=== PATIENT | female | born 1945 | race Caucasian/White ===

== ENCOUNTER 2020-01-15 14:18 | Emergency (ER) | payer MEDICARE, SELFPAY ==
--- NOTE | 2020-01-15 14:30 | ED.URI ---
HPI - URI/Sore Throat General Chief Complaint: Upper Respiratory Infection Stated Complaint: COUGH/SORE THROAT Time Seen by Provider: 01/15/20 14:31 Source: patient and RN notes reviewed History of Present Illness HPI Narrative: Patient is a 74-year-old female presents the urgent care with complaints of a cough and sore throat since last . Patient states that she feels her cough is keeping her up at night and getting worse. Patient denies any production, shortness of breath. States that she does feel like she may be wheezing when she lays down at night. No other acute complaints. Patient has been using Coricidin and Tylenol. No acute distress noted. Patient read the plan of care. Related Data Home Medications Medication Instructions Recorded Confirmed anastrozole 1 mg tablet 1 mg PO DAILY 10/30/19 01/15/20 aspirin 81 mg tablet,delayed 81 mg PO DAILY 10/30/19 01/15/20 release calcium carbonate 600 mg calcium 600 mg PO DAILY 10/30/19 01/15/20 (1,500 mg) tablet cholecalciferol (vitamin D3) 125 5,000 unit PO DAILY 10/30/19 01/15/20 mcg (5,000 unit) capsule magnesium gluconate 27 mg 27 mg PO BID 10/30/19 01/15/20 magnesium (500 mg) tablet Allergies Allergy/AdvReac Type Severity Reaction Status Date / Time No Known Allergies Allergy Verified 01/15/20 14:40 Review of Systems Review of Systems: Narrative: CONSTITUTIONAL: Denies fever, chills, or sweats. EYES: Denies visual changes, redness, or discharge. ENT: Reports of sinus congestion, rhinorrhea, sore throat CARDIOVASCULAR: Denies chest pain, palpitations, or edema. RESPIRATORY: Reports of nonproductive cough with intermittent wheezing at night GASTROINTESTINAL: Denies abdominal pain, nausea, vomiting, or diarrhea. GENITOURINARY: Denies dysuria or hematuria. SKIN: Denies rash or itching. MUSCULOSKELETAL: Denies back pain, joint pain, or myalgia. NEUROLOGIC: Denies headache, numbness, or weakness. All other systems reviewed are negative, except as documented in HPI. [facility] Past Medical History Medical History (Updated 01/15/20 @ 15:06 by MARAH Dickerson) Breast cancer (~2014) Diabetes HLD (hyperlipidemia) Hypertension Social History Social History Smoking status: Never smoker Second hand tobacco smoke exposure: No Alcohol intake: never Substance use: never Substance use type: does not use Comments At the time of my signature, I reviewed and agree with the nursing past medical, surgical, social, and family history. There is no relevant family history pertinent to the patient complaint. Exam Narrative: Exam Narrative: GENERAL: This is a well-nourished, well-developed patient, in no apparent distress. HEAD: normocephalic, atraumatic. EYES: PERRL. Sclera clear/white. Vision is grossly intact. EARS: External ears normal, auditory canals clear and without drainage, TMs normal without perforation. Hearing grossly intact. NOSE: External nose normal with no obvious nasal discharge, bilateral erythemic nares with clear rhinorrhea. THROAT: Mucous membranes moist, mild erythema to the posterior oropharynx with mild postnasal drainage NECK: Neck supple, non-tender without lymphadenopathy CARDIOVASCULAR: Regular rate and rhythm without murmurs, gallops, or rubs. RESPIRATORY: Clear to auscultation. Breath sounds equal bilaterally. No wheezes, rales, or rhonchi. SKIN: warm, intact with no suspicious lesions or rash, good texture and turgor. NEURO: awake, alert, and oriented to person, place and time. There were no obvious focal neurologic abnormalities. EXTREMITIES: No clubbing, cyanosis, or edema. Course Vital Signs Vital signs: Vital Signs Temperature 100.3 F H 01/15/20 14:34 Pulse Rate 73 01/15/20 14:34 Respiratory Rate 20 01/15/20 14:34 Blood Pressure 121/54 L 01/15/20 14:34 Pulse Oximetry 99 01/15/20 14:34 Temperature 100.3 F H 01/15/20 14:34 Pulse
[2020-01-15 14:34] VITALS: BP 121/54; PULSE 73; RESP 20; TEMP 37.9; O2SAT 99
== END 2020-01-15 15:13 | disposition home or self-care (01) ==
PROVIDERS: Emergency Provider Nurse Practitioner Family; PCP Family Medicine
DX: J10.1 Influenza due to other identified influenza virus with other respiratory manifestations (principal); Z85.3 Personal history of malignant neoplasm of breast; E11.9 Type 2 diabetes mellitus without complications; E78.5 Hyperlipidemia, unspecified; I10 Essential (primary) hypertension
CPT/HCPCS: 87081; 87804; 87880; 99213; G0463

== ENCOUNTER 2020-12-04 13:54 | Outpatient (CLI) | payer MEDICARE, SELFPAY ==
--- NOTE | ~2020-12-04 | MM_ITS ---
EXAMINATION: MM screening reva RT w keri HISTORY: Screening right mammogram, history of left mastectomy TECHNIQUE: Craniocaudal and mediolateral oblique 3-D tomosynthesis images were obtained and synthetic 2-D images were generated. CAD analysis was submitted and interpreted. COMPARISON: 02/15/2019, 01/27/2018, 01/18/2017 BREAST PARENCHYMAL COMPOSITION: The breasts are almost entirely fatty. FINDINGS: Scattered benign-appearing calcifications are present. There is no evidence of suspicious m ass, calcification, or architectural distortion to suggest malignancy in either breast. There has bee n no suspicious interval change. IMPRESSION: 1. No mammographic evidence of malignancy. 2. Recommend routine screening mammography in one year. BI-RADS Category 2: Benign finding(s). Reviewed, dictated and finalized at location A. D RUNNER
== END 2020-12-04 13:55 | disposition home or self-care (01) ==
PROVIDERS: PCP Family Medicine; Visit Provider Physician Assistant
DX: Z12.31 Encounter for screening mammogram for malignant neoplasm of breast (principal)
CPT/HCPCS: 77063; 77067

== ENCOUNTER 2021-01-28 11:18 | Outpatient (CLI) | payer MEDICARE, SELFPAY | END 2021-01-28 11:19 | disposition home or self-care (01) | LOC: ANHCOVIDVC 11:18 | PROVIDERS: PCP Family Medicine; Visit Provider Family Medicine | DX: Z23 Encounter for immunization (principal) | CPT/HCPCS: 0001A; 91300 ==

== ENCOUNTER 2021-02-18 11:12 | Outpatient (CLI) | payer MEDICARE, SELFPAY | END 2021-02-18 11:13 | disposition home or self-care (01) | LOC: ANHCOVIDVC 11:12 | PROVIDERS: PCP Family Medicine | DX: Z23 Encounter for immunization (principal) | CPT/HCPCS: 0002A; 91300 ==

== ENCOUNTER 2022-01-14 09:45 | Outpatient (CLI) | payer MEDICARE, SELFPAY ==
--- NOTE | ~2022-01-14 | MM_ITS ---
CORRECTED REPORT MM screening reva RT w keri only. 01/14/2022 sef EXAMINATION: MM screening reva RT w keri HISTORY: Screening TECHNIQUE: Craniocaudal and mediolateral oblique 3-D tomosynthesis images were obtained and synthetic 2-D images were generated. CAD analysis was submitted and interpreted. COMPARISON: Comparison to multiple prior studies sequentially, with oldest reviewed study dated 12/19/2015. BREAST PARENCHYMAL COMPOSITION: There are scattered areas of fibroglandular density. FINDINGS: There is a developing cluster of indeterminate calcifications in the central aspect of the right breast, slightly lateral. No suspicious masses or architectural distortion. IMPRESSION: 1. Developing cluster of indeterminate right breast calcifications. 2. Magnification views are recommended. BI-RADS Category 0: Incomplete: Needs additional imaging evaluation. Reviewed, dictated and finalized at location A. MBLY LOADER MTDD
--- NOTE | 2022-01-14 10:27 | ECG_ITS ---
Measurements Intervals [place] Rate: 62 P: 41 [place]: 146 QRS: -9 QRSD: 89 T: 43 QT: 374 QTc: 382 Interpretive Statements SINUS RHYTHM CONSIDER INFERIOR INFARCT, AGE INDETERMINATE BORDERLINE ST-T WAVE ABNORMALITY- ANTEROLAT/HIGH LAT LEADS BASELINE ARTIFACT- I, II, III, AVF ABNORMAL ECG Electronically Signed On 01-14-2022 10:47:21 ALLERGIST IMMUNOLOGIST by Santiago Patel D.O.
== END 2022-01-14 09:46 | disposition home or self-care (01) ==
PROVIDERS: PCP Internal Medicine Medical Oncology; Visit Provider Family Medicine
DX: Z12.31 Encounter for screening mammogram for malignant neoplasm of breast (principal); E78.5 Hyperlipidemia, unspecified; I10 Essential (primary) hypertension; E11.9 Type 2 diabetes mellitus without complications; R94.31 Abnormal electrocardiogram [ECG] [EKG]; R92.8 Other abnormal and inconclusive findings on diagnostic imaging of breast
CPT/HCPCS: 77063; 77067; 93005

== ENCOUNTER 2022-02-02 10:38 | Outpatient (CLI) | payer MEDICARE, SELFPAY ==
--- NOTE | ~2022-02-02 | MM_ITS ---
EXAMINATION: MM diagnostic mammo unilat RT HISTORY: Follow-up calcifications TECHNIQUE: Additional 3-D tomosynthesis images of the right breast were performed and synthetic 2-D i mages were generated. CAD analysis was submitted and interpreted. COMPARISON: Comparison to multiple prior studies sequentially, with oldest reviewed study dated 11/2017. BREAST PARENCHYMAL COMPOSITION: Breast composed of scattered areas of fibroglandular density. FINDINGS: The right breast is stable. Clustered calcifications in the upper outer quadrant of the rig ht breast are stable without significant interval change. No new suspicious calcifications, director of enterprise architecture ural distortion or mass identified. IMPRESSION: 1. Stable benign-appearing right breast calcifications. No evidence for malignancy. 2. Routine yearly screening mammogram and regular clinical breast examination are recommended. BI-RADS Category 2: Benign finding(s). Reviewed, dictated and finalized at location A. DROGENATION SUPERVISOR IMPRESSION: 1. Stable benign-appearing right breast calcifications. No evidence for maligna ncy. 2. Routine yearly screening mammogram and regular clinical breast examination a re recommended. BI-RADS Category 2: Benign finding(s).
== END 2022-02-02 10:39 | disposition home or self-care (01) ==
LOC: ANHIMG 10:38
PROVIDERS: PCP Internal Medicine Medical Oncology; Visit Provider Family Medicine
DX: R92.8 Other abnormal and inconclusive findings on diagnostic imaging of breast (principal)
CPT/HCPCS: 77065

== ENCOUNTER 2022-02-09 13:44 | Outpatient (CLI) | payer MEDICARE, SELFPAY ==
--- NOTE | ~2022-02-09 | DEXA_ITS ---
Bone Density Report Name: MONSTER FAGAN Age: 77 Sex: Female Ethnicity: White Date of : 1945 Indication: osteopenia; prior fracture; cancer; postmenopausal Referring Provider: PANCHO GOULD Study: Bone densitometry was performed. Exam Date: February 09, 2022 Accession number: [id number] Bone Density: Region BMD T-score Z-score Classification AP Spine (L1-L4) 1.067 0.2 2.6 Normal Femoral Neck (Right) 0.663 -1.7 0.4 Osteopenia Total Hip (Right) 0.838 -0.9 0.9 Normal World Health Organization criteria for BMD impression classify patients as: Normal (T-score at or above -1.0), Osteopenia (T-score between -1.0 and -2.5), or Osteoporosis (T-score at or below -2.5). 10-year Fracture Risk: FRAX not reported because: Prior hip or vertebral fracture Previous Exams: Region Exam Age BMD T-score BMD Change BMD Change Date g/cm2 vs Baseline vs Previous AP Spine(L1-L4) 02/09/2022 77 1.067 0.2 0.009(0.8%) 0.009(0.8%) 07/04/2019 74 1.058 0.1 Total Hip(Right) 02/09/2022 77 0.838 -0.9 0.049(6.2%)* 0.049(6.2%)* 07/04/2019 74 0.789 -1.3 *Denotes significance at 95% confidence level, LSC for AP Spine = 0.022 g/cm2, LSC for Total Hip = 0.027 g/cm2 Clinical Information Provided by Patient: Have had a previous hip or vertebral fracture Has had a low trauma fracture Has used the following medications: HRT (i.e. estrogen/hormone therapy), Vitamin D, Calcium Has the following medical conditions: Cancer Patient maximum height was 62 Menopause Age: 55 Does not regularly consume dairy products Drinks caffeinated beverages Onset of menses at age 17 Number of children 1 Impression: The patient has low bone mass, based on the Right Femoral Neck T-score. The patient has risk factors, including: previous fracture. No significant bone loss was observed. Discussion: INCREASED RISK OF FRACTURE DUE TO HISTORY OF FRACTURE. The patient's previous fracture puts the patient at high risk of a future fracture. In untreated patients, the risk of osteoporotic fracture increases approximately two-fold for each 1.0 SD decrease in T-score. Low bone density is not the only risk factor for fracture; also consider factors such as patient's age, frailty or poor health, risk of falling, risk of injury, previous osteoporotic fracture, family history of osteoporosis, cigarette smoking, low body weight, etc. Not everyone with a low trauma fracture has osteoporosis; osteomalacia and other metabolic bone disorders should also be considered. Pat
== END 2022-02-09 13:45 | disposition home or self-care (01) ==
LOC: ANHIMG 13:45
PROVIDERS: PCP Internal Medicine Medical Oncology; Visit Provider Family Medicine
DX: Z78.0 Asymptomatic menopausal state (principal); M85.851 Other specified disorders of bone density and structure, right thigh
CPT/HCPCS: 77080

== ENCOUNTER 2023-08-23 10:10 | Outpatient (CLI) | payer MEDICARE, SELFPAY ==
--- NOTE | ~2023-08-23 | MM_ITS ---
EXAMINATION: MM screening reva RT w keri HISTORY: Screening mammogram TECHNIQUE: Craniocaudal and mediolateral oblique 3-D tomosynthesis images were obtained and synthetic 2-D images were generated. CAD analysis was submitted and interpreted. COMPARISON: 02/02/2022 diagnostic right mammogram , 12/04/2020, 02/15/2019 right screening mammogram examinations BREAST PARENCHYMAL COMPOSITION: There are scattered areas of fibroglandular density. FINDINGS: Scattered benign calcifications. There is no evidence of suspicious mass, calcification, or architectural distortion to suggest malignancy in either breast. There has been no suspicious interv al change. IMPRESSION: 1. No mammographic evidence of malignancy. 2. Recommend routine screening mammography in one year. BI-RADS Category 2: Benign finding(s). Reviewed, dictated and finalized at location A.
== END 2023-08-23 10:11 | disposition home or self-care (01) ==
LOC: ANHIMG 10:14
PROVIDERS: PCP Internal Medicine Medical Oncology; Visit Provider Family Medicine
DX: Z12.31 Encounter for screening mammogram for malignant neoplasm of breast (principal); Z90.12 Acquired absence of left breast and nipple
CPT/HCPCS: 77063; 77067

== ENCOUNTER 2024-02-14 13:53 | Outpatient (CLI) | payer MEDICARE, SELFPAY ==
--- NOTE | ~2024-02-14 | DEXA_ITS ---
Bone Density Report Name: MONSTER FAGAN Age: 79 Sex: Female Ethnicity: White Date of : 1945 Indication: postmenopausal; screening for osteoporosis; height loss; history of glucocorticoids; cancer; Referring Provider: UNKNOWN, UNKNOWN Study: Bone densitometry was performed. Exam Date: February 14, 2024 Accession number: [id number] Bone Density: Region BMD T-score Z-score Classification AP Spine(L1-L4) 1.032 -0.1 2.4 Normal Femoral Neck (Right) 0.573 -2.5 -0.3 Osteoporosis Total Hip (Right) 0.791 -1.2 0.7 Osteopenia World Health Organization criteria for BMD impression classify patients as: Normal (T-score at or above -1.0), Osteopenia (T-score between -1.0 and -2.5), or Osteoporosis (T-score at or below -2.5). 10-year Fracture Risk: FRAX not reported because: Some T-score for Spine Total or Hip Total or Femoral Neck at or below -2.5 Clinical Information Provided by Patient: Has taken Glucocorticoids Has used the following medications: Vitamin D, Calcium Has the following medical conditions: Cancer Patient maximum height was 62 Menopause Age: 55 No regular weight bearing exercise Does not regularly consume dairy products Drinks caffeinated beverages Onset of menses at age 17 Number of children 1 Impression: The patient has osteoporosis, based on the Right Femoral Neck T-score. The patient has risk factors, including: history of glucocorticoid therapy. Discussion: INCREASED RISK OF FRACTURE. BONE DENSITY IS UNDESIRABLY LOW AT ONE OR MORE SKELETAL SITES, CONSISTENT WITH POSTMENOPAUSAL OSTEOPOROSIS. This patient's lowest T-score meets the World Health Organization's (WHO) criteria for osteoporosis at one or more sites (T-score -2.5 or below). In untreated patients, the risk of osteoporotic fracture increases approximately two-fold for each 1.0 SD decrease in T-score. Low bone density is not the only risk factor for fracture; also consider factors such as patient's age, frailty or poor health, risk of falling, risk of injury, previous osteoporotic fracture, family history of osteoporosis, cigarette smoking, low body weight, etc. Not everyone with low bone mineral density has osteoporosis; osteomalacia and other metabolic bone disorders should also be considered. Patients who have osteoporosis should be evaluated for specific diseases and conditions (secondary causes) that may cause or contribute to bone loss. The [place] Association of Clinical Endocrinologists (AACE) and National Osteoporosis Foundation (NOF) recommend pharmacologic intervention for all postmenopausal women whose T-score is in this range. The patient should follow a healthful lifestyle (good nutrition with adequate calcium and vitamin D, and appropriate weight-bearing exercise). Follow-Up: Consider a repeat BMD and Vertebral Fracture Assessment (VFA) exam in 2 years or sooner
== END 2024-02-14 13:54 | disposition home or self-care (01) ==
PROVIDERS: PCP Family Medicine
DX: Z78.0 Asymptomatic menopausal state (principal); M81.0 Age-related osteoporosis without current pathological fracture
CPT/HCPCS: 77080

== ENCOUNTER 2024-04-14 11:13 | Outpatient (CLI) | payer MEDICARE, SELFPAY ==
--- NOTE | ~2024-04-14 | XR_ITS ---
AP and lateral views of the left hip Clinical history: Pain Findings: No acute fracture or dislocation is seen. Patient is status post prior ORIF of the proximal left femur, with healed fracture deformity present. Left hip joint is intact. Soft tissues are unrem arkable. Impression: No acute abnormality. Prior ORIF of the proximal left femur. Reviewed, dictated and finalized at location . Impression: No acute abnormality. Prior ORIF of the proximal left femur.
== END 2024-04-14 11:14 | disposition home or self-care (01) ==
LOC: ANHIMG 11:15
PROVIDERS: PCP Family Medicine; Visit Provider Family Medicine
DX: M25.552 Pain in left hip (principal); Z98.890 Other specified postprocedural states
CPT/HCPCS: 73502

== ENCOUNTER 2024-05-09 11:09 | Outpatient (CLI) | payer MEDICARE, SELFPAY ==
[2024-05-09 11:33] LABS: Basophils Percent Auto 0.6 % (0.2-1.2); Eosinophils Absolute Auto 0.1 K/mm3 (0-0.3); Eosinophils Percent Auto 1.7 % (0-4.4); Hematocrit 37.5 % (37.0-47.0); Hemoglobin 11.9 g/dL (12.0-15.0); Immature Granulocyte Absolute 0.01 K/mm3 (0.00-0.031); Immature Granulocyte Percent A 0.2 % (0-0.5); Lymphocytes Absolute Auto 1.64 K/mm3 (0.9-3.2); Lymphocytes Percent Auto 25.6 % (18.3-44.2); Mean Corpuscular HGB Conc 31.7 g/dl (32-36); Mean Corpuscular Volume 91.2 fl (80-100); Mean Platelet Volume 9.1 fl (7.4-10.4); Monocytes Absolute Auto 0.3 K/mm3 (0.1-0.6); Monocytes Percent Auto 4.5 % (2.6-8.5); Neutrophils Absolute Auto 4.3 K/mm3 (1.3-6.7); Neutrophils Percent Auto 67.4 % (45.5-73.1); Platelet Count Result 195 k/mm3 (150-375); Red Blood Count 4.11 M/mm3 (4.2-5.4); Red Cell Distribution Width 12.9 % (11.5-14.5); White Blood Count 6.4 K/mm3 (4.5-10.0)
[2024-05-09 13:01] LABS: Iron 61 ug/dL (37-170)
[2024-05-09 13:14] LABS: Percent Iron Saturation 15 % (20-50)
[2024-05-09 16:57] LABS: Alanine Aminotransferase 20 U/L (6-35); Albumin Level 4.6 g/dL (3.5-5.1); Alkaline Phosphatase 37 U/L (38-126); Anion Gap 10 mmol/L (4-12); Aspartate Amino Transferase 27 U/L (14-36); Bilirubin,Total 0.6 mg/dL (0.2-1.3); Blood Urea Nitrogen 42 mg/dL (7-17); Calcium 10.2 mg/dL (8.4-10.2); Carbon Dioxide 23 mmol/L (22-30); Chloride 107 mmol/L (98-107); Estimated Glomerular Filt Rate 34; Glucose 132 mg/dL (65-110); Potassium 4.9 mmol/L (3.4-5.0); Sodium 140 mmol/L (137-145)
[2024-05-09 18:13] LABS: Folic Acid > 20.0 ng/mL (2.76->20)
[2024-05-13 03:08] LABS: Methylmalonic Acid 227 nmol/L (87-318)
[2024-05-13 16:17] LABS: Platelet Antibody, Direct NEGATIVE (NEGATIVE)
[2024-05-18 17:18] LABS: Soluble Transferrin Receptor 1.58 mg/L (0.76-1.76)
== END 2024-05-09 11:10 | disposition home or self-care (01) ==
LOC: ANHLAB 11:11
PROVIDERS: Nurse Practitioner Family; PCP Family Medicine; Visit Provider Internal Medicine Hematology & Oncology
DX: D69.6 Thrombocytopenia, unspecified (principal); D50.9 Iron deficiency anemia, unspecified
CPT/HCPCS: 36415; 80053; 82607; 82728; 82746; 83540; 83550; 83921; 84238; 85025; 86023

== ENCOUNTER 2024-05-23 09:54 | Outpatient (CLI) | payer MEDICARE, SELFPAY ==
--- NOTE | ~2024-05-23 | US_ITS ---
EXAMINATION: US abdomen complete DATE: 05/23/2024 10:47 INDICATION: Thrombocytopenia. TECHNIQUE: Multiple grayscale and Doppler ultrasound images of the abdomen were obtained. COMPARISON: CT 03/17/2016 FINDINGS: The visualized portions of the head, body, and tail of the pancreas are normal. The liver i s normal without focal lesion. There is normal flow in main portal vein. The gallbladder is normal in size and contains gallstones. No gallbladder wall thickening or sonographic Meneses sign. The common duct is normal and measures 3 mm. The kidneys are normal size. The spleen is normal in size. Abdomina l aorta is normal in caliber. Inferior vena cava is normal. IMPRESSION: 1. Cholelithiasis. No evidence of acute cholecystitis. Reviewed, dictated and finalized at location A.
== END 2024-05-23 09:55 | disposition home or self-care (01) ==
PROVIDERS: PCP Family Medicine; Visit Provider Nurse Practitioner Family
DX: D69.6 Thrombocytopenia, unspecified (principal); K80.20 Calculus of gallbladder without cholecystitis without obstruction
CPT/HCPCS: 76700

== ENCOUNTER 2024-08-25 11:52 | Outpatient (CLI) | payer MEDICARE, SELFPAY ==
[2024-08-25 12:06] LABS: Basophils Absolute Auto 0.1 K/mm3 (0.0-0.1); Basophils Percent Auto 0.8 % (0.2-1.2); Eosinophils Absolute Auto 0.3 K/mm3 (0-0.3); Eosinophils Percent Auto 4.6 % (0-4.4); Hematocrit 37.7 % (37.0-47.0); Hemoglobin 11.9 g/dL (12.0-15.0); Immature Granulocyte Absolute 0.04 K/mm3 (0.00-0.031); Immature Granulocyte Percent A 0.6 % (0-0.5); Lymphocytes Absolute Auto 1.75 K/mm3 (0.9-3.2); Lymphocytes Percent Auto 24.5 % (18.3-44.2); Mean Corpuscular HGB Conc 31.6 g/dl (32-36); Mean Corpuscular Volume 91.7 fl (80-100); Mean Platelet Volume 8.5 fl (7.4-10.4); Monocytes Absolute Auto 0.4 K/mm3 (0.1-0.6); Monocytes Percent Auto 4.9 % (2.6-8.5); Neutrophils Absolute Auto 4.6 K/mm3 (1.3-6.7); Neutrophils Percent Auto 64.6 % (45.5-73.1); Platelet Count Result 216 k/mm3 (150-375); Red Blood Count 4.11 M/mm3 (4.2-5.4); Red Cell Distribution Width 13.1 % (11.5-14.5); White Blood Count 7.2 K/mm3 (4.5-10.0)
[2024-08-25 15:47] LABS: Iron 74 ug/dL (37-170)
[2024-08-25 15:59] LABS: Anion Gap 12 mmol/L (4-12); Blood Urea Nitrogen 41 mg/dL (7-17); Calcium 10.2 mg/dL (8.4-10.2); Carbon Dioxide 27 mmol/L (22-30); Chloride 102 mmol/L (98-107); Estimated Glomerular Filt Rate 31; Glucose 183 mg/dL (65-110); Potassium 4.3 mmol/L (3.4-5.0); Sodium 141 mmol/L (137-145)
[2024-08-25 16:00] LABS: Percent Iron Saturation 19 % (20-50)
[2024-08-25 17:06] LABS: Folic Acid > 20.0 ng/mL (2.76->20); Vitamin B12 > 1000.0 pg/mL (239-931)
== END 2024-08-25 11:53 | disposition home or self-care (01) ==
LOC: ANHLAB 11:53
PROVIDERS: Nurse Practitioner Family; PCP Family Medicine; Visit Provider Internal Medicine Hematology & Oncology
DX: D50.9 Iron deficiency anemia, unspecified (principal)
CPT/HCPCS: 36415; 80048; 82607; 82728; 82746; 83540; 83550; 85025

== ENCOUNTER 2024-09-05 08:45 | Outpatient (CLI) | payer MEDICARE, SELFPAY ==
--- NOTE | ~2024-09-05 | MM_ITS ---
EXAMINATION: MM screening reva RT w keri HISTORY: Screening TECHNIQUE: Craniocaudal and mediolateral oblique 3-D tomosynthesis images were obtained and synthetic 2-D images were generated. CAD analysis was submitted and interpreted. COMPARISON: Comparison to multiple prior studies sequentially, with oldest reviewed study dated 11/2017. BREAST PARENCHYMAL COMPOSITION: Not dense: There are scattered areas of fibroglandular density. FINDINGS: There is no evidence of suspicious mass, calcification, or architectural distortion to sugg est malignancy in the right breast. There has been no suspicious interval change. IMPRESSION: 1. No mammographic evidence of malignancy. 2. Recommend routine screening mammography in one year. BI-RADS Category 1: Negative Reviewed, dictated and finalized at location B.
== END 2024-09-05 08:46 | disposition home or self-care (01) ==
PROVIDERS: PCP Family Medicine
DX: Z12.31 Encounter for screening mammogram for malignant neoplasm of breast (principal)
CPT/HCPCS: 77063; 77067

== ENCOUNTER 2025-02-27 10:25 | Outpatient (CLI) | payer MEDICARE, SELFPAY ==
[2025-02-27 10:40] LABS: Basophils Percent Auto 0.7 % (0.2-1.2); Eosinophils Absolute Auto 0.2 K/mm3 (0-0.3); Eosinophils Percent Auto 2.9 % (0-4.4); Hematocrit 38.4 % (37.0-47.0); Hemoglobin 12.2 g/dL (12.0-15.0); Immature Granulocyte Absolute 0.03 K/mm3 (0.00-0.031); Immature Granulocyte Percent A 0.5 % (0-0.5); Lymphocytes Absolute Auto 1.86 K/mm3 (0.9-3.2); Lymphocytes Percent Auto 30.3 % (18.3-44.2); Mean Corpuscular HGB Conc 31.8 g/dl (32-36); Mean Corpuscular Hemoglobin 29.3 pg (26-34); Mean Corpuscular Volume 92.3 fl (80-100); Mean Platelet Volume 8.2 fl (7.4-10.4); Monocytes Absolute Auto 0.4 K/mm3 (0.1-0.6); Monocytes Percent Auto 6.2 % (2.6-8.5); Neutrophils Absolute Auto 3.7 K/mm3 (1.3-6.7); Neutrophils Percent Auto 59.4 % (45.5-73.1); Platelet Count Result 166 k/mm3 (150-375); Red Blood Count 4.16 M/mm3 (4.2-5.4); Red Cell Distribution Width 12.9 % (11.5-14.5); White Blood Count 6.1 K/mm3 (4.5-10.0)
--- OUTSIDE RECORDS SUMMARY | 2025-02-27 11:29 | XMS_ITS | Encounter Summary ---
Author Organization [facility] Facility Care Team Providers Care Insolvency Practitioner Name Role Phone Vanessa Rivera MD Primary Care Provider [phone] Vanessa Rivera MD Primary Care Provider [phone] Harjeet Tinsley MD, Jonathan Unavailable [phone] Carol Chisholm NP Unavailable [phone] Encounter Details Date Type Department Care Team (Latest Contact Info) Description 12/19/2018 Orders Only [facility] ProviderGunner MD [address] [place], [place] [id number] Social History Tobacco Use Types Packs/Day Years Used Date Smoking Tobacco: Never Smokeless Tobacco: Never Alcohol Use Standard Drinks/Week Comments No 0 (1 standard drink = 0.6 oz pur e alcohol) Comments Unknown Sex and Gender Information Value Date Recorded Sex Assigned at Not on file 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 us Historical Provider MD Final Res ult * PROCEDURE - RESULT (12/19/2018 12:00 AM SLOT MACHINE REPAIRER) Narrative 12/19/2018 12:00 AM SLOT MACHINE REPAIRER Ordered by an unspecified provider. 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
--- OUTSIDE RECORDS SUMMARY | 2025-02-27 11:29 | XMS_ITS | Clinical Summary ---
Author Organization [facility] Address [address] [place] [address] Phone Care Team Providers Care Benefits Officer Name Role Phone Vanessa Rivera MD Primary Care Provider [phone] Carol Chisholm NP Unavailable [phone] Allergies No known active allergies Medications ONETOUCH ULTRA BLUE TEST STRIP strip TEST TWO TO THREE TIMES A DAY PRN 5 05/17/20 18 Active cholecalciferol (VITAMIN D-3) 5,000 unit tablet Take 1 tablet (5,000 Units total) by mouth daily Active glimepiride (AMARYL) 2 mg tabletIndications: type 2 diabetes mellitus TK 1 T PO QD 1 05/30/20 18 Active lisinopril (PRINIVIL,ZESTRIL) 10 mg tablet TK 1 T PO QD 1 05/30/20 18 Active polyethylene glycol (MIRALAX) 17 gram/dose powder 0 12/19/19 19 Active fenofibrate (TRICOR) 54 mg tablet TK 1 T PO QD 0 08/07/20 19 Active gabapentin (NEURONTIN) 600 mg tablet Take 0.5 tablets (300 mg total) by mouth nightly 02/05/20 22 Active ascorbate calcium, vitamin C, 500 mg tablet Take 1 capsule by mouth daily Active calcium carbonate-vitamin D3 1,500 mg (600 mg elemental)-400 unit capsule Take 1 capsule by mouth daily Active magnesium gluconate (MAGONATE) 500 mg (27 mg elemental) tabletIndications: hypomagnesemia Activ e zinc 50 mg tablet Take 1 tablet by mouth daily Active potassium 99 mg tablet Take 1 tablet (99 mg total) by mouth daily Active ondansetron ODT (ZOFRAN-ODT) 4 mg disintegrating tablet Take 1 tablet (4 mg total) by mouth every 8 (eight) hours as needed for nausea or vomiting 20 tablet 1 08/21/20 22 Active Additional Information Patient not taking.Reported on 08/10/2023 traMADoL (ULTRAM) 50 mg tablet Take 1 tablet (50 mg total) by mouth every 8 (eight) hours as needed for pain 20 tablet 08/21/20 22 Active Additional Information Patient not taking.Reported on 08/10/2023 alendronate (FOSAMAX) 70 mg tabletIndications: Localized osteoporosis without current pathological fracture,Aromatase inhibitor use,Malignant neoplasm of overlapping 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 12 tablet 3 05/17/20 24 025 Active rosuvastatin (CRESTOR) 10 mg tablet Take 1 tablet (10 mg total) by mouth daily Active cyanocobalamin (Vitamin B-12) 1,000 mcg tabletIndications: Prevention of Vitamin B12 Deficiency Take 1 tablet (1,000 mcg total) by mouth daily Active ferrous sulfate ER 324 mg (65 mg iron) EC tabletIndications: Iron Deficiency Anemia Take 65 mg by mouth daily with breakfast Active anastrozole (ARIMIDEX) 1 mg tablet TAKE 1 TABLET BY MOUTH DAILY 100 tablet 2 12/05/19 25 Active Active Problems Problem Noted Date Diagnosed Date Osteoporosis 08/06/2023 Overview (02/18/2024): Date Lumbar Spine T-score Right hip T-score Femoral neck T-score 07-04-2019 0.1 -1.3 -2.2 02-09-2022 0.2 -0.9 -1.7 02-14-2024 -0.1 -1.2 -2.5 Malignant neoplasm of overla pping sites of left breast in female, estrogen receptor positive 05/18/2018 Acquired absence of left breast and nipple 05/18 Aromatase inhibitor use 05/18/2018 History of external beam radiation therapy 05/18 Resolved Problems Problem Noted Date Diagnosed Date Resolved Date Preoperative clearance 02/05/202208/06 Trigger point of left shoulder region 12/19/2019 08/06/2023 Osteoarthritis of left glenohumeral joint 12/19/2019 08/06/2023 History of shoulder surgery 12/19/2019 08/06/2023 Macromastia 09/07/2019 08/06/2023 History of antineoplastic chemotherapy 05/18/2018 08/06/2023 Encounters Date Type Department Care Team Description 02/05/2025 Telephone [facility] On[facility] Floor [address] [place] [address] Daya Milner, RMA from Last 3 Months Immunizations Immunization Administration Dates Next Due Influenza, Quad, Adjuvantate d, Intramuscular 08/14/2020 Influenza, Trivalent, High D ose, Split, Preservative Free, Intramuscular 07/29/2019,09/06/2018 Influenza, Unspecified 08/07/2021,09/16/2018,11/2016 Pfizer SARS-CoV-2 Monovalent Vaccination (12+ Yrs) PURPLE 02/18/2021,01/28/2021 Pneumococcal Conjugate PCV 13 09/07/2016 Pneumococcal Polysaccharide PPV23 11/09/2018 Pneumococcal, Unspecified 08/29/2017 Tdap 10/22/2016 ZOSTER LIVE 08/29/2017,11/24/2016,09/07/2016 Surgical History Surgery Date Site/Laterality Comments BREAST BIOPSY Left COLONOSCOPY HIP SURGERY 11/29/2016 - 11/28/2017 Left ORIF Gamma Nail SHOULDER ARTHROSCOPY Left shoulder ROTATOR CUFF REPAIR 11/29/2018 - 11/28/2019 Left shoulder FLUORO GUIDED INJECTION SHOULDER LEFT 12/08/2017 Left MASTECTOMY 11/29/2014 - 11/28/2015 Left with tissue coil repair technician placement [facility] BREAST SURGERY 02/27/2022 - 03/28/2022 Left coil repair technician removal Medical History Medical History Date Comments Breast cancer (HCC) Diabetes mellitus (HCC) type 2 Hypercholesteremia Gout Anemia PONV (postoperative nausea and vomiting) Hypertension GERD (gastroesophageal reflux disease) Urinary tract infection Joint movement restricted left s houlder--needs foam padding in OR for arm placement Tooth loose 08/14/2022 lower anterior History of shoulder surgery 12/19/2019 History of antineoplastic chemotherapy 8 Trigger point of left shoulder region 12/19/2019 Osteoarthritis of left glenohumeral joint 2019 Macromastia 09/07/2019 Family History Medical History Relation Name Comments Colon cancer Brother 1 Rectal cancer Brother 1 Lung cancer Brother 2 Cancer Brother 3 Rheum arthritis Father Lung cancer Mother Lung cancer Sister 1 Diabetes Sister 2 Diabetes Sister 3 No Known Problems Sister 4 No Known Problems Son Relation Name Status Comments Brother 1 Brother 2 Brother 3 Father Mother Sister 1 Sister 2 Alive Sister 3 Alive Sister 4 Alive Son Alive Social History Tobacco Use Types Packs/Day Years Used Date Smoking Tobacco: Never Smokeless Tobacco: Never Tobacco Cessation:Counseling Given: Not Answered Alcohol Use Standard Drinks/Week Comments No 0 (1 standard drink = 0.6 oz pur e alcohol) AUDIT-C Answer Date Recorded Q1: How often do you have a drink containing alc ohol? Never 02/20/2022 Average Number of Drinks Not on file 022 Q3: How often do you have si x or more drinks on one occasion? 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 Gender Identity Not on file Sexual Orientation Not on file Occupation Industry Job Start Date Job End Date retired Not on file Not on file Not on file Obstetrics History Last Filed Vital Signs Vital Sign Reading Time Taken Comments Blood Pressure 176/71 08/22/2024 10:31 AM CDT Pulse 70 08/22/2024 10:31 AM CDT Temperature 37.1 C (98.7 F) 08/22/2024 10:31 AM CDT Respiratory Rate 16 08/22/2024 10:31 AM CDT Oxygen Saturation 97% 08/22/2024 10:31 AM CDT Inhaled Oxygen Concentration - - Weight 79.9 kg (176 lb 3.2 oz) 08/22/2024 10:31 AM CDT Height 157.5 cm (5' 2 ) 08/10/2023 10:24 AM CDT Body Mass Index 32.23 08/10/2023 10:24 AM CDT Plan of Treatment Health Maintenance Due Date Last Done Comments Depression Screening 1945 Hepatitis C Screening 1945 Osteoporosis Screening-Bone Density Scan 1945 Hepatitis B Screening 1965 Well Visit 65+ 02/02/2012 Zoster Vaccine (1 of 2) 10/24/2017 08/29/20 17, 11/24/2016, 09/07/2016 Fall Risk Assessment 08/21/2023 08/21/2022 Covid-19 Vaccine (4 - 2023-2 5 season) 2024 09/30/2021, 02/18/2021, 01/28/2021 Influenza Vaccine (#1) 2024 , 08/14/2020, 07/29/2019, Additional history exists DTaP/Tdap/Td Vaccine (2 - Td or Tdap) 10/22/2026 10/22/2016 Pneumococcal vaccine 65+ Completed 018, 08/29/2017, 09/07/2016 Breast Cancer Screening-Mammogram Discontinued 023 Medical Devices Implanted Type Area Food Mixer Device Identifier Shelf Expiration Date Model / Serial / Lot Wong Left: Femur [employer] Implant Breast High Profile Smooth Memorygel Boost 405cc Gel [id number] - [id number] Implanted:Qty: 1 on 08/21/2022 by Luis Mock DO at [facility] Left: Breast [employer] 03/15/2027 [id number] / / [id number] Procedures Procedure Name Priority Date/Time Associated Diagnosis Comments SCREENING MAMMOGRAM Schedule Routine, Read Routine (OP Routine) 08/23/2023 2:18 PM CDT from Last 3 Months or Most Recently Relevant to Health Maintenance Results * Screening Mammogram (08/23/2023 2:18 PM CDT) Anatomical Region Laterality Modality Breast N/A Mammography us Historical Provider MD [place] MAMMO PROCEDURES Linda dominguez Result from Last 3 Months or Most Recently Relevant to Health Maintenance Insurance [facility] MEDICARE ADVANTAGE [facility] MEDICARE ADVANTAGE [facility] MEDICARE ADVANTAGE Advance Directives For more information, please contact: [phone] Documents on File Type Date Recorded Patient Track Moving Machine Operator Expl anation ADVANCE DIRECTIVE 12/19/2018 12:00 AM CELY Bowman OF HEATING REPAIR TECHNICIAN FINANCIAL/MEDICAL Care Teams Benefits Officer Relationship Specialty Start Date End Date Vanessa Rivera MD PCP - General Family Medicine 01/17/19 Carol Chisholm NP [address] [place] [address] Nurse Practitioner Medical Oncology 02/18/24
--- OUTSIDE RECORDS SUMMARY | 2025-02-27 11:29 | XMS_ITS | Referral Summary ---
Author Organization [facility] Address [address] [place] [address] Phone Care Team Providers Care Endless Track Vehicle Supervisor Name Role Phone Vanessa Rivera MD Primary Care Provider [phone] Carol Chisholm PARCEL POST TRUCK DRIVER Unavailable [phone] Encounters Date Type Department Care Team Description 02/05/2025 Telephone [facility] Oncology [facility] Floor [address] [place] [address] Daya Milner, MAXIMUS from Last 3 Months Allergies No known active allergies Medications ONETOUCH [...] as needed for pain 20 tablet 08/21/20 Active Additional Information Patient not taking.Reported on [...] 0.1 -1.3 -2.2 02-09-2022 0.2 -0.9 -1.7 3-18-2024 -0.1 -1.2 -2.5 Malignant neoplasm of overla [...] 08/06/2023 History of antineoplastic chemotherapy 05/18/2018 08/06/2023 Immunizations Immunization Administration Dates Next Due Influenza, Quad, Adjuvantate d, Intramuscular 08/14/2020 Influenza, Trivalent, High D ose, Split, Preservative Free, Intramuscular 07/29/2019,09/06/2018 Influenza, Unspecified 08/07/2021,09/16/2018,11/2016 Pfizer SARS-CoV-2 Monovalent Vaccination (12+ Yrs) PURPLE 02/18/2021,01/28/2021 Pneumococcal Conjugate PCV 13 09/07/2016 Pneumococcal Polysaccharide PPV23 11/09/2018 Pneumococcal, Unspecified 08/29/2017 Tdap 10/22/2016 ZOSTER LIVE 08/29/2017,11/24/2016,09/07/2016 Social History Tobacco Use Types Packs/Day Years [...] on file 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 STACKER Gender Identity Not on file Sexual Orientation Not on file Occupation Industry Job Start Date Job End Date retired Not on file Not on file Not on file Last Filed Vital Signs Vital Sign Reading [...] 08/10/2023 10:24 AM CDT Plan of Treatment Not on file Medical Devices Implanted Type Area Wet Wash Assembler Device Identifier Shelf Expiration Date Model / Serial / Lot Wong Left: Femur [employer] Implant Breast High Profile Smooth Memorygel Boost 405cc Gel [id number] - [id number] Implanted:Qty: 1 on 08/21/2022 by Luis Mock, at [facility] Left: Breast [employer] 03/15/2027 [id number] / / [id number] Procedures Procedure Name Priority Date/Time Associated [...] Most Recently Relevant to Health Maintenance Insurance [facility] MEDICARE ADVANTAGE [place] [id number] [place] [id number] [facility] MEDICARE ADVANTAGE Advance Directives For more information, please contact: [phone] Documents on File Type Date Recorded Patient Stopboard Assembler Expl anation ADVANCE DIRECTIVE 12/19/2018 12:00 AM CELY R OF SHEET TAILER FINANCIAL/MEDICAL Care Teams Endless Track Vehicle Supervisor Relationship Specialty Start Date End Date Vanessa Rivera MD PCP - General Family Medicine 01/17/19 Carol Chisholm NP [address] [place] [address] Nurse Practitioner Medical Oncology 02/18/24
--- OUTSIDE RECORDS SUMMARY | 2025-02-27 11:29 | XMS_ITS | Encounter Summary ---
Author Organization [facility] Address [address] [place] [address] Phone Care Team Providers Care Tank Car Mechanic Name Role Phone Vanessa Rivera MD Primary Care Provider [phone] Harjeet Tinsley MD, Jonathan Unavailable [phone] Carol Chisholm NP Unavailable [phone] Encounter Details Date Type Department Care Team (Latest Contact Info) Description 07/04/2019 Orders Only [facility] Scanning, Provider Social History Tobacco Use Types Packs/Day Years Used Date Smoking Tobacco: Never Smokeless Tobacco: Never Alcohol Use Standard Drinks/Week Comments No 0 (1 standard drink = 0.6 oz pur e alcohol) Comments Unknown Sex and Gender Information Value Date Recorded Sex Assigned at Not on file 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 Gender Identity Not on file Sexual Orientation Not on file Occupation Industry Job Start Date Job End Date retired Not on file Not on file Not on file documented as of this encounter Plan of Treatment Not on file documented as of this encounter Procedures Procedure Name Priority Date/Time Associated Diagnosis Comments SCAN - RADIOLOGY/IMAGING 07/04/2019 documented in this encounter Results * SCAN - RADIOLOGY/IMAGING (07/04/2019) Anatomical Region Laterality Modality Other us Provider Scanning Final Result documented in this encounter Visit Diagnoses Not on filedocumented in this encounter Additional Health Concerns Infection Onset Date Last Indicated Resolved Time MRSA 08/14/2022 08/14/2022 02/10/2023 3:05 AM CDT documented as of this encounter Care Teams Tank Car Mechanic Relationship Specialty Start Date End Date Vanessa Rivera MD PCP - General Family Medicine 01/17/19 Jonathan Cosby Jr., MD Medical Oncologist/Patient Support Tech Medical Oncology 06/21/20 02/17/24 Carol Chisholm NP [address] [place] [address] Nurse Practitioner Medical Oncology 02/18/24 documented as of this encounter
--- OUTSIDE RECORDS SUMMARY | 2025-02-27 11:29 | XMS_ITS | Clinical Summary ---
Author Organization [facility] Address [address] [place] [address] Care Team Providers Care Care Technician Name Role Phone Vanessa Rivera MD Primary Care Provider [phone] Allergies No known active allergies Medications ONETOUCH ULTRA BLUE TEST STRIP Strip TEST 2 TO 3 TIMES D PRN 1 04/04/2018 Active glimepiride (AMARYL) 2 mg tablet TK 1 T PO QD 0 03/03/2018 Active lisinopril (PRINIVIL) 10 mg tablet TK 1 T PO QD 0 03/03/2018 Active cholecalciferol , vitamin D3, (VITAMIN D3) 5,000 unit Take 5,000 Units by mouth daily. Active omega-3 fatty acids (FISH OIL ORAL) Take by mouth. Active aspirin (ECOTRIN EC) 81 mg Tablet, Delayed Release (E.C.) Take 81 mg by mouth daily. Active anastrozole (ARIMIDEX) 1 mg tablet Take 1 mg by mouth daily. Active gabapentin (NEURONTIN) 300 mg capsule TK 1 C PO QD 0 05/29/2019 Activ e OMEGA-3 FATTY ACIDS-FISH OIL ORAL Take by mouth. Active fenofibrate (LOFIBRA) 54 mg TK 1 T PO QD 0 08/07/2019 Active polyethylene glycol 3350 (MIRALAX) 17 gram/dose Powder 12/19/2018 Active potassium gluconate 595 mg (99 mg) Tablet Take 99 mg by mouth daily. Active Ascorbate Calcium 500 mg Tablet Take 1 Capsule by mouth daily. Active rosuvastatin (CRESTOR) 10 mg tablet Take 10 mg by mouth daily. Active alendronate (FOSAMAX) 70 mg tablet Take 70 mg by mouth every 7 days. 02/18/2024 02/18/20 25 Active Problems Problem Noted Date Diagnosed Date Macromastia 09/07/2019 History of external beam radiation therapy 05/18 History of antineoplastic chemotherapy 8 Aromatase inhibitor use 05/18/2018 Malignant neoplasm of overla pping sites of left breast in female, estrogen receptor negative 05/18/2018 Acquired absence of left breast and nipple 05/18 Encounters Date Type Department Care Team Description 02/14/2025 External Device Data [facility] ABSTRACTION Provider, Abstract 02/03/2025 External Device Data [facility] ABSTRACTION Provider, Abstract 02/02/2025 External Device Data [facility]CTION Provider, Abstract 01/16/2025 External Device Data [facility] ABSTRACTION Provider, Abstract 12/20/2024 External Device Data [facility] ABSTRACTION Provider, Abstract 12/19/2024 External Device Data [facility] ABSTRACTION Provider, Abstract from Last 3 Months Family History Medical History Relation Name Comments Colon Cancer Brother 1 christin Diabetes Brother 1 christin Lung Cancer Brother 2 chely at age 17 Lung Cancer Brother 3 vidhya Cancer Father Cancer Mother esophagus and c olon Diabetes Mother Lung Cancer Mother at 75 Lung Cancer Sister 1 unknow dx age; at 65 Diabetes Sister 3 jodie Diabetes Sister 4 miguel No Known Problems Son matilda Relation Name Status Comments Brother 1 christin Brother 2 chely Brother 3 vidhya Father Mother Sister 1 Sister 2 yanci Alive Sister 3 jodie Alive Sister 4 miguel Alive Son matilda Alive Social History Tobacco Use Types Packs/Day Years Used Date Smoking Tobacco: Never Smokeless Tobacco: Never Tobacco Cessation:Counseling Given: Not Answered Alcohol Use Standard Drinks/Week Comments No 0 (1 standard drink = 0.6 oz pur e alcohol) Comments No Sex and Gender Information Value Date Recorded Sex Assigned at Not on file Legal Sex Female 3:37 PM CDT Gender Identity Not on file Sexual Orientation Not on file Last Filed Vital Signs Vital Sign Reading Time Taken Comments Blood Pressure 137/74 08/30/2024 10:27 AM CDT Pulse 63 08/30/2024 10:27 AM CDT Temperature 36.5 C (97.7 F) 08/30/2024 10:23 AM CDT Respiratory Rate 16 08/30/2024 10:23 AM CDT Oxygen Saturation 96% 08/30/2024 10:23 AM CDT Inhaled Oxygen Concentration - - Weight 78.9 kg (174 lb) 08/30/2024 10:23 AM CDT Height 152.4 cm (5') 05/09/2024 10:25 AM CDT Body Mass Index 33.98 05/09/2024 10:25 AM CDT Plan of Treatment Upcoming Encounters Date Type Department Care Team (Late st Contact Info) Description 02/28/2025 10:15 AM CDT Office Visit [facility] Oncology and Hematology - Aníbal [address] [facility] [address] [place] [address] Chris Pompa MD [address] [facility] [address] [place] [address] Health Maintenance Due Date Last Done Comments OSTEOPOROSIS SCREENING 02/02/2012 ZOSTER VACCINE (2 of 3) 10/24/2017 08/29/20 17, 11/24/2016, 09/07/2016 RSV VACCINE (60+ or ) (1 - 1-dose 75+ series) 2022 INFLUENZA VACCINE (#1) 2024 0, 07/29/2019, 09/06/2018 [place] Prev entative Visit/Annual Wellness Visit 11/29/2024 DTAP/TDAP/TD VACCINES (2 - T d or Tdap) 10/22/2026 10/22/2016 PNEUMOCOCCAL VACCINE 50+ YEARS Completed 1 01/10/2018, 08/29/2017, 09/07/2016 [facility] [employer] [id number] [facility] [id number] Care Teams Care Technician Relationship Specialty Start Date End Date Vanessa Rivera MD [address] [place] [address] PCP - General Family Practice 05/18/18
--- OUTSIDE RECORDS SUMMARY | 2025-02-27 11:29 | XMS_ITS | Encounter Summary ---
Author Organization [facility] Care Team Providers Care Yarn Inspector Name Role Phone Vanessa Rivera MD Primary Care Provider [phone] Vanessa Rivera MD Primary Care Provider [phone] Harjeet Tinsley MD, Jonathan Unavailable [phone] Carol Chisholm NP Unavailable [phone] Encounter Details Date Type Department Care Team (Latest Contact Info) Description 05/23/2018 Orders Only [facility] Provider, MD Gunner [address] [place] [address] Social History Tobacco Use Types Packs/Day Years Used Date Smoking Tobacco: Never Assessed Comments Unknown Sex and Gender Information Value Date Recorded Sex Assigned at Not on file Legal Sex Female 6:24 AM DEPUTY DIRECTOR Gender Identity Not on file Sexual Orientation Not on file documented as of this encounter Plan of Treatment Not on file documented as of this encounter Procedures Procedure Name Priority Date/Time Associated Diagnosis Comments PROCEDURE - RESULT 08/17/2018 12 :00 AM CDT PROCEDURE - RESULT 05/23/2018 12 :00 AM CDT documented in this encounter Results * PROCEDURE - RESULT (08/17/2018 12:00 AM CDT) Narrative 08/17/2018 12:00 AM CDT Ordered by an unspecified provider. Historical Provider Final Res ult * PROCEDURE - RESULT (05/23/2018 12:00 AM CDT) Narrative 05/23/2018 12:00 AM CDT Ordered by an unspecified provider. us Historical Provider Final Res ult documented in this encounter Visit Diagnoses Not on filedocumented in this encounter Additional Health Concerns Infection Onset Date Last Indicated Resolved Time MRSA 08/14/2022 08/14/2022 02/10/2023 3:05 AM CDT documented as of this encounter Care Teams Yarn Inspector Relationship Specialty Start Date End Date Vanessa Rivera MD PCP - General Family Medicine 06/28/18 01/16/19 Vanessa Rivera MD PCP - General Family Medicine 01/17/19 Jonathan Cosby Jr., MD Medical Oncologist/Handle Sander Operator Medical Oncology 06/21/20 02/17/24 Carol Chisholm NP [address] [place] [address] Nurse Practitioner Medical Oncology 02/18/24 documented as of this encounter
--- OUTSIDE RECORDS SUMMARY | 2025-02-27 11:29 | XMS_ITS | Encounter Summary ---
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 RENTAL SERVICE ATTENDANT Gender Identity Not on file Sexual Orientation Not on file Occupation Industry Job Start Date Job End Date retired Not on file Not on file Not on file documented as of this encounter Plan of Treatment Not on file documented as of this encounter Procedures Procedure Name Priority Date/Time Associated Diagnosis Comments SCAN - RADIOLOGY/IMAGING 02/14/2024 documented in this encounter Results * SCAN - RADIOLOGY/IMAGING (02/14/2024) Anatomical Region Laterality Modality Other us Provider Scanning Final Result documented in this encounter Visit Diagnoses Not on filedocumented in this encounter Care Teams Land Acquisition Specialist Relationship Specialty Start Date End Date Vanessa Rivera MD PCP - General Family Medicine 01/17/19 Jonathan Cosby Jr., MD Medical Oncologist/Counselor At Law Medical Oncology 06/21/20 02/17/24 Carol Chisholm NP [address] [place] [address] Nurse Practitioner Medical Oncology 02/18/24 documented as of this encounter
--- OUTSIDE RECORDS SUMMARY | 2025-02-27 11:29 | XMS_ITS | Continuity of Care Document ---
Author Organization [facility] Address [address] [place] [address] utive [facility] [address] [place] [address] Phone Care Team Providers Care Mmd Unit Teacher Name Role Phone Javi Cox Unavailable Unavailable Procedures Procedure Date Eye Exam & Treatment Refraction Advance Directives Directive Yes / No Effective Date File Name No Information Encounters Encounter Description Practice Location Reason(s) For Visit Diagnoses Date Provider Providers Copied on Encounter [facility], [address] [place] [address] [address], [place], [place], [id number], [place] tel:[phone] [facility] [place] No Information Jan-0 3-200 8 Doisy Edward. [address] [facility] [place] , [address], [place], [address], [place]. tel:[phone] Family History Family Member Type Diagnosis Age At Onset No Information Payers Payer name Insurance type Covered constitution party ID Authoriza tion(s) Aetna PPO CI [id number] Social History Type Description Quantity Date Captured [...]
--- OUTSIDE RECORDS SUMMARY | 2025-02-27 11:29 | XMS_ITS | Clinical Summary ---
Author Organization [facility] Address [address] [place] [address] Care Team Providers Care Sap Consultant Name Role Phone Crissy Valadez MD Primary Care Provider Social History Tobacco Use Types Packs/Day Years Used Date Smoking Tobacco: Never Assessed Comments Unknown Sex and Gender Information Value Date Recorded Sex Assigned at Not on file Legal Sex Female 10:44 PM CDT Gender Identity Not on file Sexual Orientation Not on file Plan of Treatment Health Maintenance Due Date Last Done Comments Hepatitis C 1965 DTaP, Tdap and Td Vaccines ( 1 - Tdap) 1966 Zoster Vaccines (1 of 2) 1997 Dexa Scan (General) 02/02/2012 Pneumococcal Vaccine: 65+ Ye ars (1 of 1 - PCV) 02/02/2012 RSV Immunization or 60+ Years (1 - 1-dose 75+ series) 2022 COVID-19 Vaccine ( - 2023-2 5 season) 2024 Influenza Adult (#1) 2024 Meningococcal B Vaccine Aged Out No l onger eligible based on patient's age to complete this topic Meningococcal Vaccine Aged Out No karlo jennifer eligible based on patient's age to complete this topic RSV Immunizations Under 20 Months Aged Out No longer eligible based on patient's age to complete this topic Care Teams Sap Consultant Relationship Specialty [place] [address] [place] [address] PCP - General 06/04/15
[2025-02-27 12:39] LABS: Iron 75 ug/dL (37-170)
[2025-02-27 12:48] LABS: Percent Iron Saturation 19 % (20-50)
[2025-02-27 14:16] LABS: Anion Gap 9 mmol/L (4-12); Blood Urea Nitrogen 35 mg/dL (7-17); Calcium 10.3 mg/dL (8.4-10.2); Carbon Dioxide 26 mmol/L (22-30); Chloride 105 mmol/L (98-107); Estimated Glomerular Filt Rate 37; Glucose 129 mg/dL (65-110); Potassium 4.7 mmol/L (3.4-5.0); Sodium 140 mmol/L (137-145)
[2025-02-27 15:23] LABS: Folic Acid > 20.0 ng/mL (2.76->20)
== END 2025-02-27 10:26 | disposition home or self-care (01) ==
LOC: ANHLAB 10:26
PROVIDERS: PCP Family Medicine; Visit Provider Internal Medicine Hematology & Oncology
DX: D64.9 Anemia, unspecified (principal)
CPT/HCPCS: 36415; 80048; 82607; 82728; 82746; 83540; 83550; 85025

== ENCOUNTER 2025-03-02 12:20 | Outpatient (CLI) | payer MEDICARE, SELFPAY ==
--- NOTE | ~2025-03-02 | DEXA_ITS ---
Bone Density Report Name: MONSTER FAGAN Age: 80 Sex: Female Ethnicity: White Date of : 1945 Indication: osteopenia; monitoring treatment; height loss; history of glucocorticoids; prior fracture; cancer; Referring Provider: SANDY STEVENS Study: Bone densitometry was performed. Exam Date: March 02, 2025 Accession number: [id number] Bone Density: Region BMD T-score Z-score Classification AP Spine(L1-L4) 1.116 0.6 3.2 Normal Femoral Neck (Right) 0.573 -2.5 -0.3 Osteoporosis Total Hip (Right) 0.777 -1.4 0.6 Osteopenia World Health Organization criteria for BMD impression classify patients as: Normal (T-score at or above -1.0), Osteopenia (T-score between -1.0 and -2.5), or Osteoporosis (T-score at or below -2.5). 10-year Fracture Risk: FRAX not reported because: Some T-score for Spine Total or Hip Total or Femoral Neck at or below -2.5 Treated for osteoporosis Previous Exams: Region Exam Age BMD T-score BMD Change BMD Change Date g/cm2 vs Baseline vs Previous AP Spine (L1-L4) 03/02/2025 80 1.116 0.6 0.058 (5.5%)* 0.084 (8.1%)* 02/14/2024 79 1.032 -0.1 -0.026 (-2.4%) -0.034 (-3.2%) 02/09/2022 77 1.067 0.2 0.009 (0.8%) 0.009 (0.8%) 07/04/2019 74 1.058 0.1 Total Hip(Right) 03/02/2025 80 0.777 -1.4 -0.012 (-1.5%) -0.014 (-1.8%) 02/14/2024 79 0.791 -1.2 0.002 (0.3%) -0.046 (-5.6%) 02/09/2022 77 0.838 -0.9 0.049 (6.2%)* 0.049 (6.2%)* 07/04/2019 74 0.789 -1.3 *Denotes significance at 95% confidence level, LSC for AP Spine = 0.022 g/cm2, LSC for Total Hip = 0.027 g/cm2 # Denotes dissimilar scan types or analysis methods Clinical Information Provided by Patient: Has had a low trauma fracture Has taken Glucocorticoids Is being treated for osteoporosis Has used the following medications: Fosamax (i.e. alendronate), Vitamin D, Calcium Has the following medical conditions: Cancer Patient maximum height was 62 Menopause Age: 55 No regular weight bearing exercise Onset of menses at age 17 Number of children 1 Impression: The patient has established osteoporosis, based on the Right Femoral Neck T-score and the existence of a prior fracture. The patient has risk factors, including: previous fracture, history of glucocorticoid therapy. No significant bone loss was observed. Discussion: PATIENT UNDER TREATMENT WITH NO SIGNIFICANT BMD LOSS SINCE LAST EXAM. In an untreated patient, BMD typically declines with age. A lack of decline or gain is usually a sign that treatment is efficacious and fracture risk is reduced. It is important to ask patients whether they are taking their medications and to encourage continued and appropriate compliance with their osteoporosis therapies to reduce fracture risk. It is also important to review their risk factors and encourage appropriate calcium and vitamin D intakes, exercise, fall prevention and other lifestyle measures. Follow-Up: Consider a repeat BMD and Vertebral Fracture Assessment (VFA) exam in 2 years or sooner if medically necessary, to reassess this patient's status. Reported by: BRI on 03/02/2025 12:59:00 PM. Reviewed, dictated and finalized at location A. RADHA
--- OUTSIDE RECORDS SUMMARY | 2025-03-02 12:25 | XMS_ITS | Encounter Summary ---
Author Organization 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
--- OUTSIDE RECORDS SUMMARY | 2025-03-02 12:25 | XMS_ITS | Encounter Summary ---
Author Organization [facility] Address [address] [place] [address] Care Team Providers Care Spoon Maker Name Role Phone Vanessa Rivera MD Primary Care Provider [phone] Encounter Details Date Type Department Care Team (Late Contact Info) Description 02/27/2025 Orders Only [facility] Oncology and Hematology [place] [address] [place] [address] Chris Pompa MD [facility] [employer] [address] [place] [address] Social History Tobacco Use Types Packs/Day Years [...] as of this encounter Plan of Treatment Upcoming Encounters Date Type Department Care Team (Late Contact Info) Description 06/06/2025 11:45 AM CDT Office Visit [facility] Oncology and Hematology - Aníbal [address] [place] [address] Chris Pompa MD [address] [employer] [address] [place] [address] documented as of this encounter Procedures Procedure Name Priority Date/Time Associated Diagnosis Comments BASIC METABOLIC PANEL Routine 02/27/2025 3:51 PM CDT CBC MIXED CELL DIFFERENTIAL Routine 02/27/2025 1:17 PM CDT documented in this encounter Results * BASIC METABOLIC PANEL (02/27/2025 3:51 PM CDT) Blood us Chris Pompa MD CHEMISTRY ORDERABLES Final Resu lt * CBC MIXED CELL DIFFERENTIAL (02/27/2025 1:17 PM CDT) Blood us Chris Pompa MD HEMATOLOGY ORDERABLES Final Res ult documented in this encounter Visit Diagnoses Not on filedocumented in this encounter Care Teams Spoon Maker Relationship Specialty Start Date End Date Vanessa Rivera MD [address] [place] [address] PCP - General Family Practice 05/18/18 documented as of this encounter
--- OUTSIDE RECORDS SUMMARY | 2025-03-02 12:25 | XMS_ITS | Referral Summary ---
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 Gender Identity Not on file Sexual Orientation [...] on file Medical Devices Implanted Type Area Dredge Deckhand Device Identifier Shelf Expiration Date Model / Serial / Lot Wong Left: Femur [employer] Implant Breast High Profile Smooth Memorygel Boost 405cc Gel [id number] - [id number] Implanted:Qty: 1 on 08/21/2022 by Luis Mock, at [facility] Left: Breast [employer] 03/15/2027 [id number] / / [id number] Procedures Procedure Name Priority Date/Time Associated [...] Most Recently Relevant to Health Maintenance Insurance [facility] MEDICARE ADVANTAGE [place] [id number] [place] [id number] [facility] MEDIC[facility] ADV[facility]AGE Advance Directives For more information, please contact: [phone] Documents on File Type Date Recorded Patient Administrative Office Clerk Expl anation ADVANCE DIRECTIVE 12/19/2018 12:00 AM CELY R OF FITNESS SERVICES MANAGER FINANCIAL/MEDICAL Care Teams Pain Medicine Physician Relationship Specialty Start Date End Date Vanessa Rivera MD PCP - General Family Medicine 01/17/19 Carol Chisholm NP [address] [place] [address] Nurse Practitioner Medical Oncology 02/18/24
--- OUTSIDE RECORDS SUMMARY | 2025-03-02 12:25 | XMS_ITS | Clinical Summary ---
Author Organization [facility] Address [address] [place] [address] Care Team Providers Care Fuel Injection Servicer Name Role Phone Vanessa Rivera MD Primary Care Provider [phone] Allergies No known active allergies Medications ONETOUCH [...] Take 81 mg by mouth daily. Active gabapentin (NEURONTIN) [...] Encounters Date Type Department Care Team Description 02/28/2025 10:15 AM CDT Office Visit [facility] Oncology and [facility] [address] [place] [address] Chris Pompa MD Localized osteoporosis, unspecified pathological fracture presence (Primary Dx); Chronic anemia 02/27/2025 Orders Only [facility] Oncology and [facility] [address] [place] [address] Chris Pompa MD 02/14/2025 External Device Data STL ABSTRACTION Provider, [...] Diabetes Sister 4 miguel No Known Problems Chip grey Relation Name Status Comments Brother 1 christin [...] Sign Reading Time Taken Comments Blood Pressure 142/72 02/28/2025 10:02 AM CDT Pulse 61 02/28/2025 10:00 AM CDT Temperature 36.2 C (97.1 F) 02/28/2025 10:00 AM CDT Respiratory Rate 15 02/28/2025 10:00 AM CDT Oxygen Saturation 97% 02/28/2025 10:00 AM CDT Inhaled Oxygen Concentration - - Weight 77.2 kg (170 lb 3.2 oz) 02/28/2025 10:00 AM CDT Height 152.4 cm (5') 05/09/2024 10:25 AM CDT Body Mass Index 33.24 05/09/2024 10:25 AM CDT Plan of Treatment Upcoming Encounters Date Type Department Care Team (Late st Contact Info) Description 06/06/2025 11:45 AM CDT Office Visit [facility] Oncology and Hematology [facility] [address] [email or web address] [address] [place] [address] Chris Pompa MD [address] [facility] [address] [place] [address] Health Maintenance Due Date Last Done Comments OSTEOPOROSIS SCREENING 02/02/2012 ZOSTER VACCINE (2 of 3) 10/24/2017 08/29/20 17, 11/24/2016, 09/07/2016 RSV VACCINE (60+ or ) (1 - 1-dose 75+ series) 2022 INFLUENZA VACCINE (#1) 2024 0, 07/29/2019, 09/06/2018 [place] Prev entative Visit/Annual Wellness Visit 11/29/2024 DTAP/TDAP/TD VACCINES (2 - T d or Tdap) 10/22/2026 10/22/2016 PNEUMOCOCCAL VACCINE 50+ YEARS Completed 1 01/10/2018, 08/29/2017, 09/07/2016 Procedures Procedure Name Priority Date/Time Associated Diagnosis Comments BASIC METABOLIC PANEL Routine 02/27/2025 3:51 PM CDT CBC MIXED CELL DIFFERENTIAL Routine 02/27/2025 1:17 PM CDT from Last 3 Months Results * BASIC METABOLIC PANEL (02/27/2025 3:51 PM CDT) Blood Chris Pompa MD CHEMISTRY ORDERABLES Final Resu lt * CBC MIXED CELL DIFFERENTIAL (02/27/2025 1:17 PM CDT) Blood Chris Pompa MD HEMATOLOGY ORDERABLES Final Res ult from Last 3 Months Insurance Care Teams Fuel Injection Servicer Relationship Specialty Start Date End Date Vanessa Rivera MD [address] [place] [address] PCP - General Family Practice 05/18/18
--- OUTSIDE RECORDS SUMMARY | 2025-03-02 12:25 | XMS_ITS | Clinical Summary ---
Author Organization [facility] Address [address] [place] [address] Phone Care Team Providers Care Circular Clerk Name Role Phone Vanessa Rivera MD Primary Care Provider [phone] Carol Chisholm NP Unavailable [phone] Allergies No known active allergies Medications ONETOUCH [...] Type Department Care Team Description 02/05/2025 Telephone [facility] Oncology [facility] Floor [address] [place] [address] Daya Milner, RMA from Last [...] MASTECTOMY 11/29/2014 - 11/28/2015 Left with tissue gear tester placement [facility] BREAST SURGERY 02/27/2022 - 03/28/2022 Left gear tester removal Medical History Medical History Date Comments [...] on file Legal Sex Female 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 SALES AGENT Gender Identity Not on file Sexual Orientation [...] Discontinued 023 Medical Devices Implanted Type Area Safety Risk Lead Device Identifier Shelf Expiration Date Model / Serial / Lot Wong Left: Femur [employer] Implant Breast High Profile Smooth Memorygel Boost 405cc Gel [id number] - [id number] Implanted:Qty: 1 on 08/21/2022 by Luis Mock DO at [facility] Left: Breast [employer] 03/15/2027 [id number] / / [id number] Procedures Procedure Name Priority Date/Time Associated [...] Most Recently Relevant to Health Maintenance Insurance [facility] MEDICARE ADVANTAGE [facility] Address: [address] [address] [place] [address] [facility] MEDICARE ADVANTAGE [facility] Address: [address] [address] [place] [address] [facility] MEDICARE ADVANTAGE [facility] Address: [address] [address] [place] [address] Advance Directives For more information, please contact: [phone] Documents on File Type Date Recorded Patient Senior Stereo Compiler Team Lead Expl anation ADVANCE DIRECTIVE 12/19/2018 12:00 AM CELY Bowman OF ACCOUNT FINANCIAL MANAGER FINANCIAL/MEDICAL Care Teams Circular Clerk Relationship Specialty Start Date End Date Vanessa Rivera MD PCP - General Family Medicine 01/17/19 Carol Chisholm NP [address] [place] [address] Nurse Practitioner Medical Oncology 02/18/24
--- OUTSIDE RECORDS SUMMARY | 2025-03-02 12:25 | XMS_ITS | Encounter Summary ---
Author Organization [facility] Address [address] [place] [address] Phone Care Team Providers Care Waistband Setter Name Role Phone Vanessa Rivera MD Primary Care Provider [phone] Harjeet Tinsley MD, Jonathan Unavailable [phone] Carol Chisholm NP Unavailable [phone] Encounter Details Date Type Department Care Team [...] on file Legal Sex Female 6:24 AM CUSHION INSTALLER Gender Identity Not on file Sexual Orientation [...] on filedocumented in this encounter Care Teams Waistband Setter Relationship Specialty Start Date End Date Vanessa Rivera MD PCP - General Family Medicine 01/17/19 Jonathan Cosby Jr., MD Medical Oncologist/Rn Residential Medical Oncology 06/21/20 02/17/24 Carol Chisholm NP [address] [place] [address] Nurse Practitioner Medical Oncology 02/18/24 documented as of this encounter
--- OUTSIDE RECORDS SUMMARY | 2025-03-02 12:25 | XMS_ITS | Encounter Summary ---
Author Organization [facility] Facility Care Team Providers Care Contact Center Specialist Name Role Phone Vanessa Rivera MD Primary Care Provider [phone] Vanessa Rivera MD Primary Care Provider [phone] Harjeet Tinsley MD, Jonathan Unavailable [phone] Carol Chisholm NP Unavailable [phone] Encounter Details Date Type Department Care Team (Latest Contact Info) Description 05/23/2018 Orders Only [facility] Provider, MD Gunner [address] [place] [address] Social History Tobacco Use Types Packs/Day Years Used Date Smoking Tobacco: Never Assessed Comments Unknown Sex and Gender Information Value Date Recorded Sex Assigned at Not on file Legal Sex Female 6:24 AM SAP CRM DEVELOPER Gender Identity Not on file Sexual Orientation [...] documented as of this encounter Care Teams Contact Center Specialist Relationship Specialty Start Date End Date Vanessa Rivera MD PCP - General Family Medicine 06/28/18 01/16/19 Vanessa Rivera MD PCP - General Family Medicine 01/17/19 Jonathan Cosby Jr., MD Medical Oncologist/Domestic Technician Medical Oncology 06/21/20 02/17/24 Carol Chisholm NP [address] [place] [address] Nurse Practitioner Medical Oncology 02/18/24 documented as of this encounter
--- OUTSIDE RECORDS SUMMARY | 2025-03-02 12:25 | XMS_ITS | Continuity of Care Document ---
Author Organization [facility] Address [address] [place] [address] utive [facility] [address] [place] [address] Phone Care Team Providers Care High School Tutor Name Role Phone Javi Cox Unavailable Unavailable Procedures Procedure Date Eye Exam & Treatment Refraction Advance Directives Directive Yes / No Effective Date File Name No Information Encounters Encounter Description Practice Location Reason(s) For Visit Diagnoses Date Provider Providers Copied on Encounter Merged with [facility], [address] [place] [address] [address], [place], [place], [address], [place] tel:[phone] [facility] [place] No Information Jan-0 3-200 8 Doisy Edward. [address] [facility] [place] , [address], [place], [address], [place]. tel:[phone] Family History Family Member Type Diagnosis Age At Onset No Information Payers Payer name Insurance type Covered libertarian ID Authoriza tion(s) Aetna PPO CI [id number] Social History Type Description Quantity Date Captured [...]
--- OUTSIDE RECORDS SUMMARY | 2025-03-02 12:25 | XMS_ITS | Clinical Summary ---
Author Organization [facility] Address [address] [place] [address] Care Team Providers Care Glass Curvature Gauger Name Role Phone Crissy Valadez MD Primary Care Provider [phone] Social History Tobacco Use Types Packs/Day Years [...] Vaccine ( - 2023-2 5 season) 2024 Meningococcal B Vaccine Aged Out No l onger eligible based on patient's age to complete this topic Meningococcal Vaccine Aged Out No karlo jennifer eligible based on patient's age to complete this topic RSV Immunizations Under 20 Months Aged Out No longer eligible based on patient's age to complete this topic Care Teams Glass Curvature Gauger Relationship Specialty [place] [address] [facility] [address] [place] [address] PCP - General 06/04/15
--- OUTSIDE RECORDS SUMMARY | 2025-03-02 12:25 | XMS_ITS | Encounter Summary ---
Author Organization [facility] Facility Care Team Providers Care Jeep Mechanic Name Role Phone Vanessa Rivera MD Primary Care Provider Vanessa Rivera MD Primary Care Provider [phone] Harjeet Tinsley MD, Jonathan Unavailable [phone] Carol Chisholm ACCOUNTANT CLERK Unavailable [phone] Encounter Details Date Type Department Care Team (Latest Contact Info) Description 12/19/2018 Orders Only [facility]INCON[facility] ProviderGunner MD [address] [place] [address] Social History Tobacco Use Types Packs/Day Years Used Date Smoking Tobacco: Never Smokeless Tobacco: Never Alcohol Use Standard Drinks/Week Comments No 0 (1 standard drink = 0.6 oz pur e alcohol) Comments Unknown Sex and Gender Information Value Date Recorded Sex Assigned at Not on file Legal Sex Female 6:24 AM DIRECTOR PHYSICAL Gender Identity Not on file Sexual Orientation Not on file documented as of this encounter Plan of Treatment Not on file documented as of this encounter Procedures Procedure Name Priority Date/Time Associated Diagnosis Comments PROCEDURE - RESULT 01/04/2019 12 :00 AM DIRECTOR PHYSICAL PROCEDURE - RESULT 12/19/2018 12 :00 AM DIRECTOR PHYSICAL documented in this encounter Results * PROCEDURE - RESULT (01/04/2019 12:00 AM DIRECTOR PHYSICAL) Narrative 01/04/2019 12:00 AM DIRECTOR PHYSICAL Ordered by an unspecified provider. us Historical Provider MD Final Res ult * PROCEDURE - RESULT (12/19/2018 12:00 AM DIRECTOR PHYSICAL) Narrative 12/19/2018 12:00 AM DIRECTOR PHYSICAL Ordered by an unspecified provider. 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
== END 2025-03-02 12:21 | disposition home or self-care (01) ==
LOC: ANHIMG 12:24
PROVIDERS: PCP Family Medicine; Referring Provider Internal Medicine Medical Oncology; Visit Provider Internal Medicine Hematology & Oncology
DX: M81.0 Age-related osteoporosis without current pathological fracture (principal); M85.851 Other specified disorders of bone density and structure, right thigh
CPT/HCPCS: 77080

== ENCOUNTER 2025-03-22 15:12 | Outpatient (CLI) | payer MEDICARE, SELFPAY ==
--- OUTSIDE RECORDS SUMMARY | 2025-03-22 16:25 | XMS_ITS | Continuity of Care Document ---
Author Organization [facility] Address [address] [place] [address] [address] [place] [address] Phone Care Team Providers Care Durability Technician Name Role Phone Javi Cox Unavailable Unavailable Procedures Procedure Date Eye Exam & Treatment Refraction Advance Directives Directive Yes / No Effective Date File Name No Information Encounters Encounter Description Practice Location Reason(s) For Visit Diagnoses Date Provider Providers Copied on Encounter [facility], [address] [place] [address] [address], [place], [place], [id number], [place] tel:[phone] [facility] [place] No Information Jan-0 3-200 8 Doisy Edward. [address] [facility] , [address], [place], [address], [place]. tel:[phone] Family History Family Member Type Diagnosis Age At Onset No Information Payers Payer name Insurance type Covered libertarian ID Authoriza tion(s) Aetna PPO CI [id number] Social History Type Description Quantity Date Captured [...]
--- OUTSIDE RECORDS SUMMARY | 2025-03-22 16:25 | XMS_ITS | Referral Summary ---
Author Organization [facility] Address [address] [place] [address] Phone Care Team Providers Care Extension Service Specialist In Charge Name Role Phone Vanessa Rivera MD Primary Care Provider [phone] Carol Chisholm POLYMERIZATION SUPERVISOR Unavailable [phone] Encounters Date Type Department Care Team Description 02/05/2025 Telephone [facility] Oncology [facility] Floor [address] [place] [address] Daya Milner, MAXIMUS from Last [...] on file Legal Sex Female 6:24 AM SEBD TEACHER Gender Identity Not on file Sexual Orientation [...] on file Medical Devices Implanted Type Area Gem Technician Device Identifier Shelf Expiration Date Model / Serial / Lot Wong Left: Femur [employer] Implant Breast High Profile Smooth Memorygel Boost 405cc Gel [id number] - [id number] Implanted:Qty: 1 on 08/21/2022 by Luis Mock, at [facility] Left: Breast [employer] 03/15/2027 [id number] / [id number] Procedures Procedure Name Priority Date/Time Associated [...] Most Recently Relevant to Health Maintenance Insurance [facility] MEDICARE ADVANTAGE [place] [id number] [place] [id number] [facility] MEDICARE ADVANTAGE Advance Directives For more information, please contact: [phone] Documents on File Type Date Recorded Patient Non Linear Editor Expl anation ADVANCE DIRECTIVE 12/19/2018 12:00 AM CELY R OF MEDIATOR FINANCIAL/MEDICAL Care Teams Extension Service Specialist In Charge Relationship Specialty Start Date End Date Vanessa Rivera MD PCP - General Family Medicine 01/17/19 Carol Chisholm NP [address] [place] [address] Nurse Practitioner Medical Oncology 02/18/24
--- OUTSIDE RECORDS SUMMARY | 2025-03-22 16:25 | XMS_ITS | Encounter Summary ---
Author Organization [facility] Address [address] [place] [address] Phone Care Team Providers Care Criminal Justice Program Director Name Role Phone Vanessa Rivera MD Primary Care Provider [phone] Harjeet Tinsley MD, Jonathan Unavailable [phone] Carol Chisholm NP Unavailable [phone] Encounter Details Date Type Department Care Team [...] on file Legal Sex Female 6:24 AM STRUCTURAL FITTER Gender Identity Not on file Sexual Orientation [...] documented as of this encounter Care Teams Criminal Justice Program Director Relationship Specialty Start Date End Date Vanessa Rivera MD PCP - General Family Medicine 01/17/19 Jonathan Cosby Jr., MD Medical Oncologist/Ward Assistant Medical Oncology 06/21/20 02/17/24 Carol hCisholm NP [address] [place] [address] Nurse Practitioner Medical Oncology 02/18/24 documented as of this encounter
--- OUTSIDE RECORDS SUMMARY | 2025-03-22 16:25 | XMS_ITS | Encounter Summary ---
Author Organization [facility] Address [address] [place] [address] Phone Care Team Providers Care Sprinkler Truck Driver Name Role Phone Vanessa Rivera MD Primary Care Provider [phone] Harjeet Tinsley MD, Jonathan Unavailable [phone]- [phone] Carol Chisholm NP Unavailable [phone] Encounter Details Date Type Department Care Team [...] on file Legal Sex Female 6:24 AM RETAIL ADMINISTRATIVE ASSISTANT Gender Identity Not on file Sexual Orientation [...] on filedocumented in this encounter Care Teams Sprinkler Truck Driver Relationship Specialty Start Date End Date Vanessa Rivera MD PCP - General Family Medicine 01/17/19 Jonathan Cosby Jr., MD Medical Oncologist/Pipe Fitter Medical Oncology 06/21/20 02/17/24 Carol Chisholm NP [address] [place] [address] Nurse Practitioner Medical Oncology 02/18/24 documented as of this encounter
--- OUTSIDE RECORDS SUMMARY | 2025-03-22 16:25 | XMS_ITS | Clinical Summary ---
Author Organization [facility] Address [address] [place] [address] Care Team Providers Care Biomedical Service Engineer Name Role Phone Vanessa Rivera MD Primary Care Provider [phone] Allergies No known active allergies Medications ONETOUCH [...] Take 10 mg by mouth daily. Active Active Problems Problem Noted Date Diagnosed Date Macromastia 09/07/2019 History of external beam radiation therapy 05/18 History of antineoplastic chemotherapy 8 Aromatase inhibitor use 05/18/2018 Malignant neoplasm of overla pping sites of left breast in female, estrogen receptor negative 05/18/2018 Acquired absence of left breast and nipple 05/18 Encounters Date Type Department Care Team Description 03/09/[address] [facility] Oncology and Hematology [facility] [address] [place] [address] Chris Pompa MD Orders 03/05/[address] [facility] Oncology and Hematology [facility] [address] [place] [address] Chris Pompa MD 02/28/2025 10:15 AM CDT Office Visit [facility] Oncology and Hematology [facility] [address] [place] [address] Chris Pompa MD Localized osteoporosis, unspecified pathological fracture presence (Primary Dx); Chronic anemia 02/27/[address] [facility] Oncology and Hematology [facility] [address] [place] [address] Chris Pompa MD 02/14/2025 External Device Data STL ABSTRACTION Provider, Abstract 02/03/2025 External Device Data STL ABSTRACTION Provider, Abstract 02/02/2025 External Device Data STL ABSTRACTION Provider, Abstract 01/16/2025 External Device Data STL ABSTRACTION Provider, Abstract from Last 3 Months Family History Medical History Relation Name Comments Colon Cancer Brother 1 bill Diabetes Brother 1 bill Lung Cancer Brother 2 chely at age 17 Lung Cancer Brother 3 vidhya Cancer Father Cancer Mother esophagus and c olon Diabetes Mother Lung Cancer Mother at 75 Lung Cancer Sister 1 unknow dx age; at 65 Diabetes Sister 3 jodie Diabetes Sister 4 miguel No Known Problems Son matilda Relation Name Status Comments Brother 1 bill Brother 2 chely Brother 3 vidhya Father [...] Description 06/06/2025 11:45 AM CDT Office Visit [facility] Oncology and Hematology - [place] [address] [place] [address] [facility] [address] [place] [address] Chris Pompa MD [address] [facility] [address] [place] [address] Health Maintenance Due Date Last Done Comments OSTEOPOROSIS SCREENING 02/02/2012 ZOSTER VACCINE (2 of 3) 10/24/2017 08/29/20 17, 11/24/2016, 09/07/2016 RSV VACCINE (60+ or ) (1 - 1-dose 75+ series) 2022 INFLUENZA VACCINE (#1) 2024 0, 07/29/2019, 09/06/2018 [place] Prev entative Visit/Annual Wellness Visit 11/29/2024 DTAP/TDAP/TD VACCINES (2 - T d or Tdap) 10/22/2026 10/22/2016 PNEUMOCOCCAL VACCINE 50+ YEARS Completed 1 01/10/2018, 08/29/2017, 09/07/2016 Procedures Procedure Name Priority Date/Time Associated Diagnosis Comments NM BONE DENSITY Routine 03/02/2025 10:51 AM CDT BASIC METABOLIC PANEL Routine 02/27/2025 3:51 PM CDT CBC MIXED CELL DIFFERENTIAL Routine 02/27/2025 1:17 PM CDT from Last 3 Months Results * NM BONE DENSITY (03/02/2025 10:51 AM CDT) Anatomical Region Laterality Modality Nuclear Medicine us Chris Pompa MD NM ORDERABLES Final Result * BASIC METABOLIC PANEL (02/27/2025 3:51 PM CDT) Blood us Chris Pompa MD CHEMISTRY ORDERABLES Final Resu lt * CBC MIXED CELL DIFFERENTIAL (02/27/2025 1:17 PM CDT) Blood us Chris Pompa MD HEMATOLOGY ORDERABLES Final Res ult from Last 3 Months Insurance Care Teams Biomedical Service Engineer Relationship Specialty Start Date End Date Vanessa Rivera MD [address] [place] [address] PCP - General Family Practice 05/18/18
--- OUTSIDE RECORDS SUMMARY | 2025-03-22 16:25 | XMS_ITS | Encounter Summary ---
Author Organization [facility] Care Team Providers Care Tender Coordinator Name Role Phone Vanessa Rivera MD Primary Care Provider [phone] Vanessa Rivera MD Primary Care Provider [phone] Harjeet Tinsley MD, Jonathan Unavailable [phone] Carol Chisholm ARMAMENT INSTALLER Unavailable [phone] Encounter Details Date Type Department Care Team (Latest Contact Info) Description 12/19/2018 Orders Only [facility] ProviderGunner MD [address] [place] [address] Social History Tobacco Use Types Packs/Day Years Used Date Smoking Tobacco: Never Smokeless Tobacco: Never Alcohol Use Standard Drinks/Week Comments No 0 (1 standard drink = 0.6 oz pur e alcohol) Comments Unknown Sex and Gender Information Value Date Recorded Sex Assigned at Not on file Legal Sex Female 6:24 AM ENDS BREAKAGE CLERK Gender Identity Not on file Sexual Orientation Not on file documented as of this encounter Plan of Treatment Not on file documented as of this encounter Procedures Procedure Name Priority Date/Time Associated Diagnosis Comments PROCEDURE - RESULT 01/04/2019 12 :00 AM ENDS BREAKAGE CLERK PROCEDURE - RESULT 12/19/2018 12 :00 AM ENDS BREAKAGE CLERK documented in this encounter Results * PROCEDURE - RESULT (01/04/2019 12:00 AM ENDS BREAKAGE CLERK) Narrative 01/04/2019 12:00 AM ENDS BREAKAGE CLERK Ordered by an unspecified provider. us Historical Provider MD Final Res ult * PROCEDURE - RESULT (12/19/2018 12:00 AM ENDS BREAKAGE CLERK) Narrative 12/19/2018 12:00 AM ENDS BREAKAGE CLERK Ordered by an unspecified provider. us Historical Provider Final Res ult documented in this encounter Visit Diagnoses Not on filedocumented in this encounter Additional Health Concerns Infection Onset Date Last Indicated Resolved Time MRSA 08/14/2022 08/14/2022 02/10/2023 3:05 AM CDT documented as of this encounter Care Teams Tender Coordinator Relationship Specialty Start Date End Date Vanessa Rivera MD PCP - General Family Medicine 06/28/18 01/16/19 Vanessa Rivera MD PCP - General Family Medicine 01/17/19 Jonathan Cosby Jr., MD Medical Oncologist/Transit Man Medical Oncology 06/21/20 02/17/24 Carol Chisholm NP [address] [place] [address] Nurse Practitioner Medical Oncology 02/18/24 documented as of this encounter
--- OUTSIDE RECORDS SUMMARY | 2025-03-22 16:25 | XMS_ITS | Clinical Summary ---
Author Organization [facility] Address [address] [place] [address] Phone Care Team Providers Care Technical Trainer Name Role Phone Vanessa Rivera MD Primary Care Provider [phone] Carol Chisholm NP Unavailable [phone] Allergies No known active allergies Medications ONETOUCH [...] Type Department Care Team Description 02/05/2025 Telephone [facility] Oncology [facility] Floor [address] [place] [address] Daya Milner, RMA from Last [...] MASTECTOMY 11/29/2014 - 11/28/2015 Left with tissue sprinkling truck driver placement [facility] BREAST SURGERY 02/27/2022 - 03/28/2022 Left sprinkling truck driver removal Medical History Medical History Date Comments [...] on file Legal Sex Female 6:24 AM UTILITY WORKER Gender Identity Not on file Sexual Orientation [...] season) 2024 09/30/2021, 02/18/2021, 01/28/2021 Influenza Vaccine (Season Ended) 2025 08/07/2021, 08/14/2020, 07/29/2019, Additional history exists DTaP/Tdap/Td Vaccine (2 - Td or Tdap) 10/22/2026 10/22/2016 Pneumococcal vaccine 65+ Completed 018, 08/29/2017, 09/07/2016 Breast Cancer Screening-Mammogram Discontinued 023 Medical Devices Implanted Type Area Service Developer Device Identifier Shelf Expiration Date Model / Serial / Lot Wong Left: Femur [employer] Implant Breast High Profile Smooth Memorygel Boost 405cc Gel [id number] - [id number] Implanted:Qty: 1 on 08/21/2022 by Luis Mock DO at [facility] Left: Breast [employer] 03/15/2027 [id number] / / [id number] Procedures Procedure Name Priority Date/Time Associated [...] Most Recently Relevant to Health Maintenance Insurance [facility] MEDICARE ADVANTAGE [facility] MEDICARE ADVANTAGE [facility] MEDICARE ADVANTAGE Advance Directives For more information, please contact: [phone] Documents on File Type Date Recorded Patient Bobbin Fixer Expl anation ADVANCE DIRECTIVE 12/19/2018 12:00 AM CELY Bowman OF COMMERCIAL CLEANER FINANCIAL/MEDICAL Care Teams Technical Trainer Relationship Specialty Start Date End Date Vanessa Rivera MD PCP - General Family Medicine 01/17/19 Carol Chisholm NP [address] [place] [address] Nurse Practitioner Medical Oncology 02/18/24
--- OUTSIDE RECORDS SUMMARY | 2025-03-22 16:25 | XMS_ITS | Clinical Summary ---
Author Organization [facility] Address [address] [place] [address] Care Team Providers Care Tobacco Drier Operator Name Role Phone Crissy Valadez MD Primary Care Provider [phone] Social History Tobacco Use Types Packs/Day Years [...] Td Vaccines ( 1 - Tdap) 1966 Pneumococcal Vaccine: 50+ Ye ars (1 of 1 - PCV) 1997 Zoster Vaccines (1 of 2) 1997 Dexa Scan (General) 02/02/2012 RSV Immunization or 60+ Years (1 [...] age to complete this topic Care Teams Tobacco Drier Operator Relationship Specialty [place] [address] [facility] [address] [address] [place] [address] PCP - General 06/04/15
--- OUTSIDE RECORDS SUMMARY | 2025-03-22 16:25 | XMS_ITS | Encounter Summary ---
Author Organization [facility] Facility Care Team Providers Care Security Systems Engineer Name Role Phone Vanessa Rivera MD Primary Care Provider [phone] Vanessa Rivera MD Primary Care Provider [phone] Harjeet Tinsley MD, Jonathan Unavailable [phone] Carol Chisholm NP Unavailable [phone] Encounter Details Date Type Department Care Team (Latest Contact Info) Description 05/23/2018 Orders Only [facility] Provider, MD Gunner [address] [place] [address] Social History Tobacco Use Types Packs/Day Years Used Date Smoking Tobacco: Never Assessed Comments Unknown Sex and Gender Information Value Date Recorded Sex Assigned at Not on file Legal Sex Female 6:24 AM VENETIAN BLIND TAPE CUTTER Gender Identity Not on file Sexual Orientation [...] documented as of this encounter Care Teams Security Systems Engineer Relationship Specialty Start Date End Date Vanessa Rivera MD PCP - General Family Medicine 06/28/18 01/16/19 Vanessa Rivera MD PCP - General Family Medicine 01/17/19 Jonathan Cosby Jr., MD Medical Oncologist/Director Of Gift Planning Medical Oncology 06/21/20 02/17/24 Carol Chisholm NP [address] [place] [address] Nurse Practitioner Medical Oncology 02/18/24 documented as of this encounter
[2025-03-22 17:37] LABS: Alanine Aminotransferase 17 U/L (6-35); Albumin Level 4.5 g/dL (3.5-5.1); Alkaline Phosphatase 47 U/L (38-126); Anion Gap 12 mmol/L (4-12); Aspartate Amino Transferase 38 U/L (14-36); Bilirubin,Total 0.3 mg/dL (0.2-1.3); Blood Urea Nitrogen 43 mg/dL (7-17); Carbon Dioxide 23 mmol/L (22-30); Chloride 106 mmol/L (98-107); Estimated Glomerular Filt Rate 41; Glucose 127 mg/dL (65-110); Potassium 4.5 mmol/L (3.4-5.0); Sodium 141 mmol/L (137-145)
== END 2025-03-22 15:13 | disposition home or self-care (01) ==
LOC: ANHLAB 15:12
PROVIDERS: PCP Family Medicine; Visit Provider Internal Medicine Hematology & Oncology
DX: D64.9 Anemia, unspecified (principal)
CPT/HCPCS: 36415; 80053

== ENCOUNTER 2025-06-05 11:25 | Outpatient (CLI) | payer MEDICARE, SELFPAY ==
--- OUTSIDE RECORDS SUMMARY | 2025-06-05 11:29 | XMS_ITS | Encounter Summary ---
Author Organization [facility] Facility Care Team Providers Care Injection Molding Machine Tender Name Role Phone Vanessa Rivera MD Primary Care Provider [phone] Vanessa Rivera MD Primary Care Provider [phone] Harjeet Tinsley MD, Jonathan Unavailable [phone] Carol Chisholm GEAR FINISHER Unavailable [phone] Encounter Details Date Type Department Care Team (Latest Contact Info) Description 12/19/2018 Orders Only [facility] ProviderGunner MD [address] [place] [address] Social History Tobacco Use Types Packs/Day Years Used Date Smoking Tobacco: Never Smokeless Tobacco: Never Alcohol Use Standard Drinks/Week Comments No 0 (1 standard drink = 0.6 oz pur e alcohol) Comments Unknown Sex and Gender Information Value Date Recorded Sex Assigned at Not on file Legal Sex Female 6:24 AM SENIOR SUPPLY CHAIN ANALYST Gender Identity Not on file Sexual Orientation Not on file documented as of this encounter Plan of Treatment Not on file documented as of this encounter Procedures Procedure Name Priority Date/Time Associated Diagnosis Comments PROCEDURE - RESULT 01/04/2019 12 :00 AM SENIOR SUPPLY CHAIN ANALYST PROCEDURE - RESULT 12/19/2018 12 :00 AM SENIOR SUPPLY CHAIN ANALYST documented in this encounter Results * PROCEDURE - RESULT (01/04/2019 12:00 AM SENIOR SUPPLY CHAIN ANALYST) Narrative 01/04/2019 12:00 AM SENIOR SUPPLY CHAIN ANALYST Ordered by an unspecified provider. us Historical Provider MD Final Res ult * PROCEDURE - RESULT (12/19/2018 12:00 AM SENIOR SUPPLY CHAIN ANALYST) Narrative 12/19/2018 12:00 AM SENIOR SUPPLY CHAIN ANALYST Ordered by an unspecified provider. us Historical Provider Final Res ult documented in this encounter Visit Diagnoses Not on filedocumented in this encounter Additional Health Concerns Infection Onset Date Last Indicated Resolved Time MRSA 08/14/2022 08/14/2022 02/10/2023 3:05 AM CDT documented as of this encounter Care Teams Injection Molding Machine Tender Relationship Specialty Start Date End Date Vanessa Rivera MD PCP - General Family Medicine 06/28/18 01/16/19 Vanessa Rivera MD PCP - General Family Medicine 01/17/19 Jonathan Cosby Jr., MD Medical Oncologist/Geometry Professor Medical Oncology 06/21/20 02/17/24 Carol Chisholm NP [address] [place] [address] Nurse Practitioner Medical Oncology 02/18/24 documented as of this encounter
--- OUTSIDE RECORDS SUMMARY | 2025-06-05 11:29 | XMS_ITS | Encounter Summary ---
Author Organization [facility] Facility Care Team Providers Care Painter Sign Maintenance Name Role Phone Vanessa Rivera MD Primary Care Provider [phone] Vanessa Rivera MD Primary Care Provider [phone] Harjeet Tinsley MD, Jonathan Unavailable [phone] Carol Chisholm NP Unavailable [phone] Encounter Details Date Type Department Care Team (Latest Contact Info) Description 05/23/2018 Orders Only [facility] Provider, MD Gunner [address] [place] [address] Social History Tobacco Use Types Packs/Day Years Used Date Smoking Tobacco: Never Assessed Comments Unknown Sex and Gender Information Value Date Recorded Sex Assigned at Not on file Legal Sex Female 6:24 AM ELECTRICIAN MANAGER Gender Identity Not on file Sexual Orientation [...] documented as of this encounter Care Teams Painter Sign Maintenance Relationship Specialty Start Date End Date Vanessa Rivera MD PCP - General Family Medicine 06/28/18 01/16/19 Vanessa Rivera MD PCP - General Family Medicine 01/17/19 Jonathan Cosby Jr., MD Medical Oncologist/Laser Systems Engineer Medical Oncology 06/21/20 02/17/24 Carol Chisholm NP [address] [place] [address] Nurse Practitioner Medical Oncology 02/18/24 documented as of this encounter
--- OUTSIDE RECORDS SUMMARY | 2025-06-05 11:29 | XMS_ITS | Clinical Summary ---
Author Organization [facility] Address [address] [place] [address] Phone Care Team Providers Care Nut Orchardist Name Role Phone Vanessa Rivera MD Primary Care Provider [phone] Carol Chisholm NP Unavailable [phone] Allergies No known active allergies Medications ONETOUCH [...] 30 min. 12 tablet 3 05/17/20 24 Active rosuvastatin (CRESTOR) 10 mg tablet Take [...] MASTECTOMY 11/29/2014 - 11/28/2015 Left with tissue pigment processor placement [facility] BREAST SURGERY 02/27/2022 - 03/28/2022 Left pigment processor removal Medical History Medical History Date Comments [...] on file Legal Sex Female 6:24 AM HVAC R TECH Gender Identity Not on file Sexual Orientation [...] 10:31 AM CDT Height 157.5 cm (5' 2) 08/10/2023 10:24 AM CDT Body Mass Index 32.23 08/10/2023 10:24 AM CDT Plan of Treatment Health Maintenance Due Date Last Done Comments Depression Screening 1945 Hepatitis C Screening 1945 Osteoporosis Screening-Bone Density Scan 1945 Hepatitis B Screening 1965 Well Visit 65+ 02/02/2012 Zoster Vaccine (1 of 2) 10/24/2017 08/29/20 17, 11/24/2016, 09/07/2016 Fall Risk Assessment 08/21/2023 08/21/2022 Covid-19 Vaccine (2023-2 5 season) 2024 09/30/2021, 02/18/2021, 01/28/2021 Influenza Vaccine (Season Ended) 2025 08/07/2021, 08/14/2020, 07/29/2019, Additional history exists DTaP/Tdap/Td Vaccine (2 - Td or Tdap) 10/22/2026 10/22/2016 Pneumococcal vaccine 65+ Completed 018, 08/29/2017, 09/07/2016 Breast Cancer Screening-Mammogram Discontinued 023 Medical Devices Implanted Type Area Commercial Drone Pilot Device Identifier Shelf Expiration Date Model / Serial / Lot Wong Left: Femur [employer] Implant Breast High Profile Smooth Memorygel Boost 405cc Gel [id number] - [id number] Implanted:Qty: 1 on 08/21/2022 by Luis Mock DO at [facility] Left: Breast [employer] 03/15/2027 [id number] / / [id number] Procedures Procedure Name Priority Date/Time Associated Diagnosis Comments SCREENING MAMMOGRAM Schedule Routine, Read Routine (OP Routine) 08/23/2023 2:18 PM CDT from Last 3 Months or Most Recently Relevant to Health Maintenance Results * Screening Mammogram (08/23/2023 2:18 PM CDT) Anatomical Region Laterality Modality Breast N/A Mammography Historical Provider MD [facility] MAMMO PROCEDURES Linda l Result from Last 3 Months or Most Recently Relevant to Health Maintenance Insurance [facility] MEDICARE ADVANTAGE [facility] MEDICARE ADVANTAGE [facility] MEDICARE ADVANTAGE Advance Directives For more information, please contact: [phone] Documents on File Type Date Recorded Patient Set Up And Charger Expl anation ADVANCE DIRECTIVE 12/19/2018 12:00 AM CELY Gracie OF MANAGING COGNITIVE ENGINEER FINANCIAL/MEDICAL Care Teams Nut Orchardist Relationship Specialty Start Date End Date Vanessa Rivera MD PCP - General Family Medicine 01/17/19 Carol Chisholm NP [address] [place] [address] Nurse Practitioner Medical Oncology 02/18/24
--- OUTSIDE RECORDS SUMMARY | 2025-06-05 11:29 | XMS_ITS | Referral Summary ---
Author Organization [facility] Address [address] [place] [address] Phone Care Team Providers Care Utility Worker Forge Name Role Phone Vanessa Rivera MD Primary Care Provider [phone] Carol Chisholm NP Unavailable [phone] Allergies No known active allergies Medications ONETOUCH [...] on file Legal Sex Female 6:24 AM TOP BOTTOM ATTACHING MACHINE OPERATOR Gender Identity Not on file [...] on file Medical Devices Implanted Type Area Vending Machine Refiller Device Identifier Shelf Expiration Date Model / Serial / Lot Wong Left: Femur [employer] Implant Breast High Profile Smooth Memorygel Boost 405cc Gel [id number] - [id number] Implanted:Qty: 1 on 08/21/2022 by Luis Mock, at [facility] Left: Breast [employer] 03/15/2027 [id number] / / [id number] Procedures Procedure Name Priority Date/Time Associated [...] Most Recently Relevant to Health Maintenance Insurance [facility] MEDICARE ADVANTAGE [facility] MEDICARE ADVANTAGE [facility] MEDICARE ADVANTAGE Advance Directives For more information, please contact: [phone] Documents on File Type Date Recorded Patient Scientist Propagator Expl anation ADVANCE DIRECTIVE 12/19/2018 12:00 AM CELY Bowman OF RECORD FILING CLERK FINANCIAL/MEDICAL Care Teams Utility Worker Forge Relationship Specialty Start Date End Date Vanessa Rivera MD PCP - General Family Medicine 2/19/19 Carol Chisholm NP [address] [place] [address] Nurse Practitioner Medical Oncology 02/18/24
--- OUTSIDE RECORDS SUMMARY | 2025-06-05 11:29 | XMS_ITS | Encounter Summary ---
Author Organization [facility] Address [address] [place] [address] Phone Care Team Providers Care Handling Tech Name Role Phone Vanessa Rivera MD Primary Care Provider [phone] Harejet Tinsley MD, Jonathan Unavailable [phone] Carol Chisholm NP Unavailable [phone] Encounter Details Date Type Department Care Team [...] on file Legal Sex Female 6:24 AM HEAD OF SALES AND MARKETING Gender Identity Not on file Sexual Orientation [...] on filedocumented in this encounter Care Teams Handling Tech Relationship Specialty Start Date End Date Vanessa Rivera MD PCP - General Family Medicine 01/17/19 Jonathan Cosby Jr., MD Medical Oncologist/Jewel Inspector Medical Oncology 06/21/20 02/17/24 Carol Chisholm NP [address] [place] [address] Nurse Practitioner Medical Oncology 02/18/24 documented as of this encounter
--- OUTSIDE RECORDS SUMMARY | 2025-06-05 11:29 | XMS_ITS | Encounter Summary ---
Author Organization [facility] Address [address] [place] [address] Phone Care Team Providers Care Plastics Nurse Name Role Phone Vanessa Rivera MD Primary Care Provider [phone] Harjeet Tinsley MD, Jonathan Unavailable [phone] Carol Chisholm NP Unavailable [phone] Encounter Details Date Type Department Care Team [...] on file Legal Sex Female 6:24 AM SOLE TIER Gender Identity Not on file Sexual Orientation [...] documented as of this encounter Care Teams Plastics Nurse Relationship Specialty Start Date End Date Vanessa Rivera MD PCP - General Family Medicine 01/17/19 Jonathan Cosby Jr., MD Medical Oncologist/Produce Wrapper Medical Oncology 06/21/20 02/17/24 Carol Chisholm NP [address] [place] [address] Nurse Practitioner Medical Oncology 02/18/24 documented as of this encounter
--- OUTSIDE RECORDS SUMMARY | 2025-06-05 11:29 | XMS_ITS | Clinical Summary ---
Author Organization [facility] Address [address] [place] [address] Care Team Providers Care Perinatal Director Name Role Phone Crissy Valadez MD Primary Care Provider [phone] Social History Tobacco Use Types Packs/Day Years [...] age to complete this topic Care Teams Perinatal Director Relationship Specialty [place] [address] [facility] [address] [place] [address] PCP - General 06/04/15
--- OUTSIDE RECORDS SUMMARY | 2025-06-05 11:29 | XMS_ITS | Continuity of Care Document ---
Author Organization [facility] Address [address] [place] [address] [address] [place] [address] Phone Care Team Providers Care Senior Salesforce Developer Name Role Phone Javi Cox Unavailable Unavailable Procedures Procedure Date Eye Exam & Treatment Refraction Advance Directives Directive Yes / No Effective Date File Name No Information Encounters Encounter Description Practice Location Reason(s) For Visit Diagnoses Date Provider Providers Copied on Encounter formerly [facility], [address] [place] [address] [address], [place], [place], [id number], [place] tel:[phone] [facility] [place] No Information Jan-0 3-200 [address] Edward. [address] [facility] [place] , [address], [place], [address], [place]. tel:[phone] Family History Family Member Type Diagnosis Age At Onset No Information Payers Payer name Insurance type Covered republican ID Authoriza tion(s) Aetna PPO CI [id number] Social History Type Description Quantity Date Captured [...]
--- OUTSIDE RECORDS SUMMARY | 2025-06-05 11:29 | XMS_ITS | Clinical Summary ---
Author Organization [facility] Address [address] [place] [address] Care Team Providers Care Student Teacher Name Role Phone Vanessa Rivera MD Primary Care Provider [phone] Allergies No known active allergies Medications ONETOUCH [...] Encounters Date Type Department Care Team Description 05/01/2025 External Device Data STL ABSTRACTION Provider, Abstract 04/19/2025 External Device Data STL ABSTRACTION Provider, Abstract 04/19/2025 Telephone [facility] Oncology and Hematology - [address] [place] [address] Chris Pompa MD Injection Questions 04/18/2025 External Device Data STL ABSTRACTION Provider, Abstract 04/17/2025 External Device Data STL ABSTRACTION Provider, Abstract 04/04/2025 Orders Only [facility] Oncology and Hematology - [address] [place] [address] Chris Pompa MD 03/26/2025 Orders Only [facility] Oncology and Hematology - [address] [place] [address] Chris Pompa MD 03/09/2025 Telephone [facility] Oncology and Hematology - [address] [place] [address] Chris Pompa MD Orders from Last 3 Months Family History Medical [...] grey Relation Name Status Comments Brother 1 bill [...] Description 06/06/2025 11:45 AM CDT Office Visit [facility] Oncology and Hematology - [address] [facility] [address] [place] [address] Chris Pompa MD [address] [facility] [address] [place] [address] Health Maintenance Due Date Last Done Comments OSTEOPOROSIS SCREENING 02/02/2012 ZOSTER VACCINE (2 of 3) 10/24/2017 08/29/20 17, 11/24/2016, 09/07/2016 RSV VACCINE (60+ or ) (1 - 1-dose 75+ series) 2022 [place] ([place]) Prev entative Visit/Annual Wellness Visit 11/29/2024 INFLUENZA VACCINE (#1) 2025 0, 07/29/2019, 09/06/2018 DTAP/TDAP/TD VACCINES (2 - T d or Tdap) 10/22/2026 10/22/2016 PNEUMOCOCCAL VACCINE 50+ YEARS Completed 1 01/10/2018, 08/29/2017, 09/07/2016 Procedures Procedure Name Priority Date/Time Associated Diagnosis Comments COMPREHENSIVE METABOLIC PANEL Routine 04/04/2025 4:00 PM CDT COMPREHENSIVE METABOLIC PANEL Routine 03/22/2025 11:03 AM CDT from Last 3 Months Results * COMPREHENSIVE METABOLIC PANEL (04/04/2025 4:00 PM CDT) Only the most recent of2 resultswithin the time period is included. Blood Chris Pompa MD CHEMISTRY ORDERABLES Final Resu lt from Last 3 Months Insurance Care Teams Student Teacher Relationship Specialty Start Date End Date Vanessa Rivera MD [address] [place] [address] PCP - General Family Practice 05/18/18
[2025-06-05 12:02] LABS: Hematocrit 37.0 % (37.0-47.0); Hemoglobin 11.7 g/dL (12.0-15.0); Mean Corpuscular HGB Conc 31.6 g/dl (32-36); Mean Corpuscular Hemoglobin 29.1 pg (26-34); Mean Corpuscular Volume 92.0 fl (80-100); Platelet Count Result 184 k/mm3 (150-375); Red Blood Count 4.02 M/mm3 (4.2-5.4); White Blood Count 5.7 K/mm3 (4.5-10.0)
[2025-06-05 12:55] LABS: Iron 63 ug/dL (37-170)
[2025-06-05 12:59] LABS: Alanine Aminotransferase 15 U/L (6-35); Albumin Level 4.3 g/dL (3.5-5.1); Alkaline Phosphatase 36 U/L (38-126); Anion Gap 10 mmol/L (4-12); Aspartate Amino Transferase 26 U/L (14-36); Bilirubin,Total 0.3 mg/dL (0.2-1.3); Blood Urea Nitrogen 47 mg/dL (7-17); Calcium 10.3 mg/dL (8.4-10.2); Carbon Dioxide 25 mmol/L (22-30); Chloride 106 mmol/L (98-107); Estimated Glomerular Filt Rate 38; Glucose 189 mg/dL (65-110); Potassium 4.4 mmol/L (3.4-5.0); Sodium 141 mmol/L (137-145); Total Protein 7.1 g/dL (6.3-8.2)
[2025-06-05 13:05] LABS: Percent Iron Saturation 16 % (20-50)
[2025-06-05 13:32] LABS: Ferritin 133.00 ng/mL (11.1-264)
[2025-06-05 13:56] LABS: Vitamin B12 792.0 pg/mL (239-931)
== END 2025-06-05 11:26 | disposition home or self-care (01) ==
PROVIDERS: PCP Family Medicine; Visit Provider Internal Medicine Hematology & Oncology
DX: D64.9 Anemia, unspecified (principal)
CPT/HCPCS: 36415; 80053; 82607; 82728; 82746; 83540; 83550; 85027

== ENCOUNTER 2025-10-05 08:52 | Outpatient (CLI) | payer MEDICARE, SELFPAY ==
--- OUTSIDE RECORDS SUMMARY | 2008-01-30 02:34 | XMS_ITS | Continuity of Care Document ---
Author Organization [facility] Address [address] [place] [address] utive [facility] [address] [place] [address] Phone Care Team Providers Care Gold Buyer Name Role Phone Javi Cox Unavailable Unavailable Procedures Procedure Date Eye Exam & Treatment Refraction Advance Directives Directive Yes / No Effective Date File Name No Information Encounters Encounter Description Practice Location Reason(s) For Visit Diagnoses Date Provider Providers Copied on Encounter [facility], [address] [place] [address] [address], [place], [place], [id number], [place] tel:[phone] [facility] [place] No Information Jan-0 3-200 8 Doisy Edward. [address] [facility] [address] , [address], [place], [address], [place]. tel:[phone] Family History Family Member Type Diagnosis Age At Onset No Information Payers Payer name Insurance type Covered green party ID Authoriza tion(s) [employer] PPO CI [id number] Social History Type Description Quantity Date Captured Comments Sex Female Smoking Status No Information Chief Complaint And Reason For Visit No Information Reason For Referral Reason For Referral No Information History Of Present Illness Encounter Date Complaint History Of Prese nt Illness No Information Functional Status Date Functional Assessmen t No Information Instructions Date Instruction Additional Infor mation No Information Assessments Type Assessment Date No Information Patient Care Teams Name Effective Dates (start - stop) Status Members No Information
--- NOTE | ~2025-10-05 | MM_ITS ---
EXAMINATION: MM screening [facility] BI w keri INDICATION: Asymptomatic, referred for screening mammogram. History of Left mastectomy 2015. COMPARISON: 09/05/2024 through 12/04/2020 TECHNIQUE: Digital Breast Tomosynthesis CC, MLO views were obtained of RIGHT breast with computer-aided detection to assist in interpretation of the study. FINDINGS: There are scattered areas of fibroglandular density. No focal dominant mass, architectural distortion, or suspicious microcalcifications are identified. There are no features to suggest malignancy. IMPRESSION: 1. No mammographic evidence of malignancy. 2. Recommend routine screening mammography in one year. BI-RADS Category 1: Negative Reviewed, dictated and finalized at location B. UNICATIONS INSTRUCTOR
--- OUTSIDE RECORDS SUMMARY | 2025-10-05 09:24 | XMS_ITS | Clinical Summary ---
Author Organization [facility] Address [address] [place] [address] Care Team Providers Care Tube Splicer Name Role Phone Crissy Valadez MD Primary Care Provider [phone] Social History Tobacco Use Types Packs/Day Years [...] 75+ series) 2022 COVID-19 Vaccine ( - 2024-2 6 season) 2025 Influenza Adult (#1) 2025 Hepatitis A Vaccines Aged Out No long er eligible based on patient's age to complete this topic Meningococcal B Vaccine Aged Out No l onger eligible based on patient's age to complete this topic Meningococcal Vaccine Aged Out No karlo jennifer eligible based on patient's age to complete this topic RSV Immunizations Under 20 Months Aged Out No longer eligible based on patient's age to complete this topic Care Teams Tube Splicer Relationship Specialty [place] [address] [place] [address] PCP - General 06/04/15
--- OUTSIDE RECORDS SUMMARY | 2025-10-05 09:24 | XMS_ITS | Encounter Summary ---
Author Organization [facility] Care Team Providers Care Regulatory Compliance Coordinator Name Role Phone Vanessa Rivera MD Primary Care Provider [phone] Vanessa Rivera MD Primary Care Provider [phone] Harjeet Tinsley MD, Jonathan Unavailable [phone] Carol Chisohlm CHEMICAL EQUIPMENT CONTROLLER Unavailable [phone] Encounter Details Date Type Department Care Team (Latest Contact Info) Description 12/19/2018 Orders Only [facility]IN[facility] ProviderGunner MD [address] [place], [place] [id number] Social History Tobacco Use Types Packs/Day Years Used Date Smoking Tobacco: Never Smokeless Tobacco: Never Alcohol Use Standard Drinks/Week Comments No 0 (1 standard drink = 0.6 oz pur e alcohol) Comments Unknown Sex and Gender Information Value Date Recorded Sex Assigned at Not on file Legal Sex Female 6:24 AM SHELLS INSPECTOR Gender Identity Not on file Sexual Orientation Not on file documented as of this encounter Functional Status documented as of this encounter Plan of Treatment Not on file documented as of this encounter Procedures Procedure Name Priority Date/Time Associated Diagnosis Comments PROCEDURE - RESULT 01/04/2019 12 :00 AM SHELLS INSPECTOR PROCEDURE - RESULT 12/19/2018 12 :00 AM SHELLS INSPECTOR documented in this encounter Results * PROCEDURE - RESULT (01/04/2019 12:00 AM SHELLS INSPECTOR) Narrative 01/04/2019 12:00 AM SHELLS INSPECTOR Ordered by an unspecified provider. us Historical Provider MD Final Res ult * PROCEDURE - RESULT (12/19/2018 12:00 AM SHELLS INSPECTOR) Narrative 12/19/2018 12:00 AM SHELLS INSPECTOR Ordered by an unspecified provider. us Historical Provider Final Res ult documented in this encounter Visit Diagnoses Not on filedocumented in this encounter Additional Health Concerns Infection Onset Date Last Indicated Resolved Time MRSA 08/14/2022 08/14/2022 02/10/2023 3:05 AM CDT documented as of this encounter Care Teams Regulatory Compliance Coordinator Relationship Specialty Start Date End Date Vanessa Rivera MD PCP - General Family Medicine 06/28/18 01/16/19 Vanessa Rivera MD PCP - General Family Medicine 01/17/19 Jonathan Cosby Jr., MD Medical Oncologist/Truck Washer Medical Oncology 06/21/20 02/17/24 Carol Chisholm NP [address] [place] [address] Nurse Practitioner Medical Oncology 02/18/24 documented as of this encounter
--- OUTSIDE RECORDS SUMMARY | 2025-10-05 09:24 | XMS_ITS | Encounter Summary ---
Author Organization [facility] Address [address] [place] [address] Phone Care Team Providers Care Teletray Operator Name Role Phone Vanessa Rivera MD Primary Care Provider [phone] Harjeet Tinsley MD, Jonathan Unavailable [phone] Carol Chisholm NP Unavailable [phone] Encounter Details Date Type Department Care Team [...] on file Legal Sex Female 6:24 AM DRILLING FIELD SPECIALIST Gender Identity Not on file Sexual Orientation [...] documented as of this encounter Care Teams Teletray Operator Relationship Specialty Start Date End Date Vanessa Rivera MD PCP - General Family Medicine 01/17/19 Jonathan Cosby Jr., MD Medical Oncologist/Photographic Equipment Inspector Medical Oncology 06/21/20 02/17/24 Carol Chisholm NP [address] [place] [address] Nurse Practitioner Medical Oncology 02/18/24 documented as of this encounter
--- OUTSIDE RECORDS SUMMARY | 2025-10-05 09:24 | XMS_ITS | Encounter Summary ---
Author Organization [facility] Care Team Providers Care Core Layer Machine Operator Name Role Phone Vanessa Rivera MD Primary Care Provider [phone] Vanessa Rivera MD Primary Care Provider [phone] Harjeet Tinsley MD, Jonathan Unavailable [phone] Carol Chisholm NP Unavailable [phone] Encounter Details Date Type Department Care Team (Latest Contact Info) Description 05/23/2018 Orders Only [facility] CLINCONV Provider, MD Gunner [address] [place] [address] Social History Tobacco Use Types Packs/Day Years Used Date Smoking Tobacco: Never Assessed Comments Unknown Sex and Gender Information Value Date Recorded Sex Assigned at Not on file Legal Sex Female 6:24 AM MARKETING OPERATIONS INTERN Gender Identity Not on file Sexual Orientation [...] unspecified provider. Historical Provider Final Res ult documented in this encounter Visit Diagnoses Not on filedocumented in this encounter Additional Health Concerns Infection Onset Date Last Indicated Resolved Time MRSA 08/14/2022 08/14/2022 02/10/2023 3:05 AM CDT documented as of this encounter Care Teams Core Layer Machine Operator Relationship Specialty Start Date End Date Vanessa Rivera MD PCP - General Family Medicine 06/28/18 01/16/19 Vanessa Rivera MD PCP - General Family Medicine 01/17/19 Jonathan Cosby Jr., MD Medical Oncologist/Sheet Metal Worker Apprentice Medical Oncology 06/21/20 02/17/24 Carol Chisholm NP [address] [place] [address] Nurse Practitioner Medical Oncology 02/18/24 documented as of this encounter
--- OUTSIDE RECORDS SUMMARY | 2025-10-05 09:25 | XMS_ITS | Clinical Summary ---
Author Organization [facility] Address [address] [place] [address] Phone Care Team Providers Care Traffic Inspector Name Role Phone Vanessa Rivera MD Primary Care Provider [phone] Carol Chisholm NP Unavailable [phone] Allergies No known active allergies Medications ONETOUCH [...] nausea or vomiting 20 tablet 1 08/21/20 Active Additional Information Patient not taking.Reported on 08/21/2025 traMADoL (ULTRAM) 50 mg tablet Take 1 tablet (50 mg total) by mouth every 8 (eight) hours as needed for pain 20 tablet 08/21/20 Active Additional Information Patient not taking.Reported on 08/21/2025 rosuvastatin (CRESTOR) 10 mg tablet Take 1 tablet (10 mg total) by mouth daily Active cyanocobalamin (Vitamin B-12) 1,000 mcg tabletIndications: Prevention of Vitamin B12 Deficiency Take 1 tablet (1,000 mcg total) by mouth daily Active ferrous sulfate ER 324 mg (65 mg iron) EC tabletIndications: Iron Deficiency Anemia Take 65 mg by mouth daily with breakfast Active Active Problems Problem Noted Date Diagnosed [...] Encounters Date Type Department Care Team Description 08/22/2025 Telephone [facility] Medicine Phys[facility] Oncology [address] [place] [address] [phone] Carol Chisholm NP 08/21/2025 11:00 AM CDT Office Visit [facility] Medicine Phys[facility] Oncology [address] [place] [phone] Carol Chisholm NP Malignant neoplasm of overlapping sites of left breast in female, estrogen receptor negative (HCC) (Primary Dx); Aromatase inhibitor use; History of external beam radiation therapy; Acquired absence of left breast and nipple; Malignant neoplasm of overlapping sites of left breast in female, estrogen receptor positive (HCC); Localized osteoporosis without current pathological fracture 08/21/2025 10:30 AM CDT Lab [facility] at [address] [address] Malignant neoplasm of overlapping sites of left breast in female, estrogen receptor negative (HCC); Aromatase inhibitor use; History of external beam radiation therapy; Acquired absence of left breast and nipple; Malignant neoplasm of overlapping sites of left breast in female, estrogen receptor positive (HCC); Localized osteoporosis without current pathological fracture from Last 3 Months Immunizations Immunization Administration [...] MASTECTOMY 11/29/2014 - 11/28/2015 Left with tissue cloth brushing and sueding supervisor placement [facility] BREAST SURGERY 02/27/2022 - 03/28/2022 Left cloth brushing and sueding supervisor removal Medical History Medical History Date Comments Breast cancer (HCC) Diabetes mellitus type 2 Hypercholesteremia Gout Anemia PONV (postoperative [...] on file Legal Sex Female 6:24 AM NUCLEAR EQUIPMENT SALES ENGINEER Gender Identity Not on file Sexual Orientation Not on file Occupation Industry Job Start Date Job End Date retired Not on file Not on file Not on file Last Filed Vital Signs Vital Sign Reading Time Taken Comments Blood Pressure 163/74 08/21/2025 10:23 AM CDT Pulse 68 08/21/2025 10:23 AM CDT Temperature 36.8 C (98.2 F) 08/21/2025 10:23 AM CDT Respiratory Rate 18 08/21/2025 10:2 3 AM CDT Oxygen Saturation 98% 08/21/2025 10: 23 AM CDT Inhaled Oxygen Concentration - - Weight 77.1 kg (169 lb 15.6 oz) 025 10:23 AM CDT Height 158 cm (5' 2.21) 08/21/2025 10: 23 AM CDT Body Mass Index 30.88 08/21/2025 10:23 AM CDT Plan of Treatment Health Maintenance Due Date Last Done Comments Depression Screening 1945 Hepatitis C Screening 1945 Osteoporosis Screening-Bone Density Scan 1945 Hepatitis B Screening 1965 Well Visit 65+ 02/02/2012 Zoster Vaccine (2 of 3) 10/24/2017 08/29/20 17, 11/24/2016, 09/07/2016 Fall Risk Assessment 08/21/2023 08/21/2022 Covid-19 Vaccine (2024-12 6 season) 2025 09/30/2021, 02/18/2021, 01/28/2021 Influenza Vaccine (#1) 2025 , 08/14/2020, 07/29/2019, Additional history exists DTaP/Tdap/Td Vaccine (2 - Td or Tdap) 10/22/2026 10/22/2016 Pneumococcal vaccine 65+ Completed 018, 08/29/2017, 09/07/2016 Breast Cancer Screening-Mammogram Discontinued 023 Medical Devices Implanted Type Area Water Supply Engineer Device Identifier Shelf Expiration Date Model / Serial / Lot Wong Left: Femur [employer] Implant Breast High Profile Smooth Memorygel Boost 405cc Gel [id number] - [id number] Implanted:Qty: 1 on 08/21/2022 by Luis Mock DO at [facility] Left: Breast [employer] 03/15/2027 [id number] / / [id number] Procedures Procedure Name Priority Date/Time Associated Diagnosis Comments EGFR Routine 08/21/2025 10:17 AM CDT Malignant neoplasm of overlapping sites of left breast in female, estrogen receptor negative (HCC) Aromatase inhibitor use History of external beam radiation therapy Acquired absence of left breast and nipple Malignant neoplasm of overlapping sites of left breast in female, estrogen receptor positive (HCC) Localized osteoporosis without current pathological fracture BASIC METABOLIC PANEL Routine 08/21/2025 10:17 AM CDT Malignant neoplasm of overlapping sites of left breast in female, estrogen receptor negative (HCC) Aromatase inhibitor use History of external beam radiation therapy Acquired absence of left breast and nipple Malignant neoplasm of overlapping sites of left breast in female, estrogen receptor positive (HCC) Localized osteoporosis without current pathological fracture VITAMIN D 25 HYDROXY Routine 08/21/2025 10:17 AM CDT Malignant neoplasm of overlapping sites of left breast in female, estrogen receptor negative (HCC) Aromatase inhibitor use History of external beam radiation therapy Acquired absence of left breast and nipple Malignant neoplasm of overlapping sites of left breast in female, estrogen receptor positive (HCC) Localized osteoporosis without current pathological fracture SCREENING MAMMOGRAM Schedule Routine, Read Routine (OP Routine) 08/23/2023 2:18 PM CDT from Last 3 Months or Most Recently Relevant to Health Maintenance Results * (ABNORMAL) eGFR (08/21/2025 10:17 AM CDT) eGFR 42(L) >=60 mL/min/1. 73 m2 Comment: Interpretive Data Reference Interval Normal >/= 90 mL/min/1.73m2 Mildly decreased* 60 - 89 mL/min/1.73m2 Mildly to moderately decreased 45 - 59 mL/min/1.73m2 Moderately to severely decreased 30 - 44 mL/min/1.73m2 Severely decreased 15 - 29 mL/min/1.73m2 Kidney Failure < 15 mL/min/1.73m2 *Relative to young adult level Estimated glomerular filtration rate is determined by the 2020 CKD-EPI equation recommended by the National Kidney Foundation (A Unifying Approach to GFR Estimation: Recommendations of the NKF-ASK Task Force on Reassessing the Inclusion of Race in Diagnosing Kidney Disease, JASN 2020). The CKD-EPI equation should not be used for patients with unstable renal function and has not been validated in children and those over 70. Current interpretive data was last reviewed 2021. Testing performed by: [facility], [address] [place] [address]., [address] Blood 08/21/2025 10:1 7 AM CDT 08/21/2025 10:20 AM CDT Carol Dayric INTEGRATIVE MEDICINE PHYSICIAN LAB BLOOD ORDERABLES Fi nal Result [address] [address] * Vitamin D 25 hydroxy (08/21/2025 10:17 AM CDT) Pathologist [facility] Vitamin D 25-OH 67.0 30.0 - 80.0 ng/mL Blood 08/21/2025 10:1 7 AM CDT 08/21/2025 12:35 PM CDT Carol Chisholm INTEGRATIVE MEDICINE PHYSICIAN LAB BLOOD ORDERABLES Fi nal Result Performing Organization Address [facility] Co de Phone Number [address] [address] * (ABNORMAL) Basic metabolic panel (08/21/2025 10:17 AM CDT) [facility] Sodium 142 135 - 145 mmol/L Comment:Testing performed by : [address] [address] Potassium, pl 4.5 3.3 - 4.9 mmol/L KANU Comment:Testing performed by : [address] [address] Chloride 105 97 - 110 mmol/L KANU Comment:Testing performed by : [address] [address] CO2 24 22 - 32 mmol/L KANU Comment:Testing performed by : [address] [address] Anion gap 13 2 - 15 mmol/L KANU Comment:Testing performed by : [address] [address] BUN 33(H) 6 - 25 mg/dL KANU Comment:Testing performed by : [address] [address] Creatinine 1.30(H) 0.60 - 1.10 mg/dL KANU Comment:Testing performed by : [address] [address] Glucose 177 70 - 199 mg/dL KANU Comment: Interpretive Data Fasting glucose >/= 126 mg/dl is diagnostic for diabetes. Fasting is defined as no caloric intake for at least 8 hours. Fasting glucose between 100 mg/dl to 125 mg/dl is diagnostic of prediabetes. In a patient with classic symptoms of hyperglycemia or hyperglycemic crisis, a random glucose >/= 200 mg/dl is diagnostic for diabetes. In the absence of unequivocal hyperglycemia, results should be confirmed by repeat testing. The classification and Diagnosis of Diabetes Diabetes Care 202; 46: S19-S40. Current interpretive data was last revised 2022. Testing performed by: [address] [address] Calcium 10.2 8.5 - 10.3 mg/dL KANU Comment:Testing performed by : [address] [address] Blood 08/21/2025 10:1 7 AM CDT 08/21/2025 10:20 AM CDT Carol Chisholm NP LAB BLOOD ORDERABLES Fi nal Result [facility] [address] [facility] [place] [address] * Screening Mammogram (08/23/2023 2:18 PM CDT) Anatomical Region Laterality Modality Breast N/A Mammography us Historical Provider MD [facility] Linda dominguez Result from Last 3 Months or Most Recently Relevant to Health Maintenance Insurance [facility] MEDICARE [facility]ANT[facility] MEDICARE Address: [address] [address] [place] [address] [facility] MEDICARE ADVANTAGE [facility] MEDICARE Address: [address] [address] [place] [address] [employer] MEDICARE ADVANTAGE [facility] MEDICARE Address: [address] [address] [place] [address] Advance Directives For more information, please contact: [phone] Documents on File Type Date Recorded Patient Car Wash Attendant Automatic Expl anation ADVANCE DIRECTIVE 12/19/2018 12:00 AM CELY Bowman OF C WEB DEVELOPER FINANCIAL/MEDICAL Care Teams Traffic Inspector Relationship Specialty Start Date End Date Vanessa Rivera MD PCP - General Family Medicine 01/17/19 Carol Chisholm NP [address] [place] [address] Nurse Practitioner Medical Oncology 02/18/24
--- OUTSIDE RECORDS SUMMARY | 2025-10-05 09:25 | XMS_ITS | Clinical Summary ---
Author Organization [facility] Address [address] [place] [address] Care Team Providers Care Lawn Mower Mechanic Name Role Phone Vanessa Rivera MD Primary Care Provider [phone] Allergies No known active allergies Medications ONETOUCH [...] Encounters Date Type Department Care Team Description 09/04/2025 External Device Data STL ABSTRACTION Provider, Abstract [...] Sign Reading Time Taken Comments Blood Pressure 129/69 06/06/2025 10:53 AM CDT Pulse 63 06/06/2025 10:53 AM CDT Temperature 36.7 C (98 F) 06/06/2025 10:53 AM CDT Respiratory Rate 16 06/06/2025 10:53 AM CDT Oxygen Saturation 98% 06/06/2025 10:53 AM CDT Inhaled Oxygen Concentration - - Weight 76.4 kg (168 lb 6.4 oz) 06/06/2025 10:53 AM CDT Height 152.4 cm (5') 05/09/2024 10:25 AM CDT Body Mass Index 32.89 05/09/2024 10:25 AM CDT Plan of Treatment Upcoming Encounters Date Type Department Care Team (Late st Contact Info) Description 12/12/2025 11:30 AM MILL WORK Office Visit [facility] Oncology and Hematology [facility] [address] [place] [phone] Chris Pompa MD [address] [facility] [address] [place] [phone] Health Maintenance Due Date Last Done Comments OSTEOPOROSIS SCREENING 02/02/2012 ZOSTER VACCINE (2 of 3) 10/24/2017 08/29/20 17, 11/24/2016, 09/07/2016 RSV VACCINE (60+ or ) (1 - 1-dose 75+ series) 2022 INFLUENZA VACCINE (#1) 2025 0, 07/29/2019, 09/06/2018 DTAP/TDAP/TD VACCINES (2 - T d or Tdap) 10/22/2026 10/22/2016 PNEUMOCOCCAL VACCINE 50+ YEARS Completed 1 01/10/2018, 08/29/2017, 09/07/2016 Insurance Care Teams Lawn Mower Mechanic Relationship Specialty Start Date End Date Vanessa Rivera MD [address] [place] [address] PCP - General Family Practice 05/18/18
--- OUTSIDE RECORDS SUMMARY | 2025-10-05 09:25 | XMS_ITS | Encounter Summary ---
Author Organization [facility] Address [address] [place] [address] Phone Care Team Providers Care Metal Wire Coating Operator Name Role Phone Vanessa Rivera MD Primary Care Provider [phone] Harjeet Tinsley MD, Jonathan Unavailable [phone] Carol Chisholm NP Unavailable [phone] Encounter Details Date Type Department Care Team [...] on file Legal Sex Female 6:24 AM BRINE PURIFIER Gender Identity Not on file Sexual Orientation [...] on filedocumented in this encounter Care Teams Metal Wire Coating Operator Relationship Specialty Start Date End Date Vanessa Rivera MD PCP - General Family Medicine 01/17/19 Jonathan Cosby Jr., MD Medical Oncologist/Professional Fighter Medical Oncology 06/21/20 02/17/24 Carol Chisholm NP [address] [place] [address] Nurse Practitioner Medical Oncology 02/18/24 documented as of this encounter
== END 2025-10-05 08:53 | disposition home or self-care (01) ==
LOC: ANHFOHIMG 08:54
PROVIDERS: PCP Family Medicine
DX: Z12.31 Encounter for screening mammogram for malignant neoplasm of breast (principal)
CPT/HCPCS: 77063; 77067